=== PATIENT | male | born 1965 | race Caucasian/White ===

== ENCOUNTER → 2018-02-04 12:43 | Outpatient (CLI) | payer OTHER, SELFPAY ==
[2018-02-04 14:02] LABS: Absolute Neutrophil Count 4.9 X10^3/uL (2.0-7.7); Basophil# 0.05 X10^3/uL; Basophil% 0.6 % (0-1); Differential Indicated SCAN CRITERIA MET; Eosinophil# 0.08 X10^3/uL; Hematocrit 42.9 % (40-54); Hemoglobin 14.8 g/dl (13.0-16.5); Lymphocyte % 27.9 % (19-41); Mean Corp Hgb Conc 34.5 g/gl (32-36); Mean Corpuscular Hgb 33.3 pg (27.0-32.0); Mean Corpuscular Volume 96.6 fL (80-94); Mean Platelet Vol. 8.7 fl (6.2-12.0); Monocyte# 0.85 X10^3/uL; Monocyte% 10.3 % (0-10); Neutrophil # 4.92 X10^3/uL (2.7-7.7); Neutrophil % 59.7 % (47-70); POSITIVE COUNT NO; POSITIVE DIFFERENTIAL NO; POSITIVE MORPHOLOGY YES; Platelet Count 338 K/mm3 (150-450); RBC Distribution Width CV 12.7 % (11.6-14.6); RBC Distribution Width SD 44.5 fl (35.1-43.9); Red Blood Count 4.44 M/mm3 (4.6-6.2); White Blood Count 8.2 K/mm3 (4.4-11.0)
[2018-02-04 14:26] LABS: Atypical Lymphocyte RARE %
[2018-02-04 14:37] LABS: AST(SGOT) 25 U/L (15-37); Alanine Aminotransfer ALT/SGPT 19 U/L (16-61); Albumin, Serum 3.6 g/dL (3.2-5.0); Alkaline Phosphatase 57 U/L (45-117); Anion Gap 7 (5-15); BUN 7 mg/dL (7-18); BUN/Creat Ratio 9.7 RATIO (10-20); Calcium,Total 8.8 mg/dL (8.5-10.1); Chloride 97 mmol/L (98-107); Cholesterol 177 mg/dL (200); Creatinine, Serum 0.72 mg/dL (0.70-1.30); EST Glomerular Filtration Rate 120 mL/min (>60); Est Glom Filt Rate - Afr Amer 145 mL/min (>60); Globulin 3.7 g/dL (2.2-4.2); Glucose 101 mg/dL (74-106); High Density Lipoprotein 53 mg/dL; Potassium 4.5 mmol/L (3.5-5.1); Protein, Total 7.3 g/dL (6.4-8.2); Sodium Level 134 mmol/L (136-145); Triglycerides 69 mg/dL; Very Low Density Lipoprotein 14 mg/dL (5-40)
[2018-02-05 14:07] LABS: Absolute CD4 Helper 857 /uL (359-1519); Basophils (Absolute) 0 x10E3/uL (0.0-0.2); CD4/CD8 Ratio 0.81 (0.92-3.72); Eosinophils 1 % (Not Estab.); Eosinophils (Absolute) 0.1 x10E3/uL (0.0-0.4); Hematocrit 41.5 % (37.5-51.0); Hemoglobin 14.4 g/dL (13.0-17.7); Immature Granulocytes 1 % (Not Estab.); Immature Granulocytes Absolute 0 x10E3/uL (0.0-0.1); Lymphs 28 % (Not Estab.); Lymphs (Absolute) 2.4 x10E3/uL (0.7-3.1); MCH 33.1 pg (26.6-33.0); MCHC 34.7 g/dL (31.5-35.7); MCV 95 fL (79-97); Monocytes 11 % (Not Estab.); Monocytes (Absolute) 0.9 x10E3/uL (0.1-0.9); Neutrophils 58 % (Not Estab.); Neutrophils (Absolute) 5.2 x10E3/uL (1.4-7.0); Percent % CD4 Pos. Lymph. 35.7 % (30.8-58.5); Percent % CD8 Pos. Lymph. 44.1 % (12.0-35.5); Platelets 319 x10E3/uL (150-379); RBC Count 4.35 x10E6/uL (4.14-5.80); RDW 13.4 % (12.3-15.4); WBC Count 8.8 x10E3/uL (3.4-10.8)
[2018-02-06 13:41] LABS: HIV-1 RNA by PCR, Quant. < 20 copies/mL (.)
== END ==
PROVIDERS: Family Provider Family Medicine; PCP Family Medicine; Visit Provider Internal Medicine Infectious Disease
DX: B20 Human immunodeficiency virus [HIV] disease (principal); E78.5 Hyperlipidemia, unspecified
CPT/HCPCS: 36415; 80053; 80061; 85025; 86360; 87536

== ENCOUNTER → 2018-08-19 11:00 | Outpatient (CLI) | payer OTHER, SELFPAY ==
[2018-08-19 13:54] LABS: Absolute Lymphocyte Count 1.92 X10^3/ul (0.83-4.51); Basophil# 0.04 X10^3/uL; Basophil% 0.7 % (0-1); Eosinophil# 0.11 X10^3/uL; Eosinophils% 1.9 % (0-5); Hematocrit 38.8 % (40-54); Hemoglobin 13.2 g/dl (13.0-16.5); Lymphocyte # 1.92 X10^3/ul (4.0); Lymphocyte % 33.1 % (19-41); Mean Corpuscular Hgb 33.7 pg (27.0-32.0); Mean Platelet Vol. 9.1 fl (6.2-12.0); Monocyte# 0.72 X10^3/uL; Monocyte% 12.4 % (0-10); Neutrophil % 51.7 % (47-70); POSITIVE COUNT NO; POSITIVE DIFFERENTIAL NO; POSITIVE MORPHOLOGY NO; Platelet Count 262 K/mm3 (150-450); RBC Distribution Width CV 12.7 % (11.6-14.6); RBC Distribution Width SD 45.9 fl (35.1-43.9); Red Blood Count 3.92 M/mm3 (4.6-6.2); White Blood Count 5.8 K/mm3 (4.4-11.0)
[2018-08-19 14:08] LABS: ALB/GLOB Ratio 1.2 RATIO (0.9-2.4); AST(SGOT) 23 U/L (15-37); Alanine Aminotransfer ALT/SGPT 22 U/L (16-61); Albumin, Serum 3.8 g/dL (3.2-5.0); Alkaline Phosphatase 46 U/L (45-117); Anion Gap 5 (5-15); BUN 9 mg/dL (7-18); BUN/Creat Ratio 11.3 RATIO (10-20); Calcium,Total 8.4 mg/dL (8.5-10.1); Chloride 99 mmol/L (98-107); Cholesterol 166 mg/dL (200); EST Glomerular Filtration Rate 107 mL/min (>60); Est Glom Filt Rate - Afr Amer 130 mL/min (>60); Globulin 3.2 g/dL (2.2-4.2); Glucose 93 mg/dL (74-106); High Density Lipoprotein 60 mg/dL; Potassium 4.7 mmol/L (3.5-5.1); Sodium Level 132 mmol/L (136-145); Triglycerides 37 mg/dL; Very Low Density Lipoprotein 7 mg/dL (5-40)
[2018-08-22 13:39] LABS: HIV-1 RNA by PCR, Quant. < 20 copies/mL (.)
== END ==
PROVIDERS: Family Provider Family Medicine; PCP Family Medicine; Referring Provider Internal Medicine Infectious Disease; Visit Provider Internal Medicine Infectious Disease
DX: B20 Human immunodeficiency virus [HIV] disease (principal); E78.5 Hyperlipidemia, unspecified
CPT/HCPCS: 36415; 80053; 80061; 85025; 87536

== ENCOUNTER → 2018-08-20 15:18 | Outpatient (CLI) | payer OTHER, SELFPAY | PROVIDERS: Family Provider Family Medicine; PCP Family Medicine; Referring Provider Internal Medicine Infectious Disease; Visit Provider Internal Medicine Infectious Disease | DX: B20 Human immunodeficiency virus [HIV] disease (principal) ==

== ENCOUNTER → 2019-02-10 13:51 | Outpatient (CLI) | payer OTHER, SELFPAY ==
[2019-02-10 14:50] LABS: Absolute Lymphocyte Count 2.54 X10^3/ul (0.83-4.51); Absolute Neutrophil Count 2.9 X10^3/uL (2.0-7.7); Basophil# 0.02 X10^3/uL; Basophil% 0.3 % (0-1); Eosinophil# 0.12 X10^3/uL; Hematocrit 41.5 % (40-54); Hemoglobin 14.3 g/dl (13.0-16.5); Lymphocyte # 2.54 X10^3/ul (4.0); Lymphocyte % 42.3 % (19-41); Mean Corp Hgb Conc 34.5 g/gl (32-36); Mean Corpuscular Volume 95.8 fL (80-94); Mean Platelet Vol. 8.8 fl (6.2-12.0); Monocyte# 0.46 X10^3/uL; Monocyte% 7.7 % (0-10); Neutrophil # 2.85 X10^3/uL (2.7-7.7); Neutrophil % 47.5 % (47-70); Platelet Count 232 K/mm3 (150-450); RBC Distribution Width CV 12.9 % (11.6-14.6); RBC Distribution Width SD 45.4 fl (35.1-43.9); Red Blood Count 4.33 M/mm3 (4.6-6.2)
[2019-02-10 14:51] LABS: POSITIVE COUNT NO; POSITIVE DIFFERENTIAL NO; POSITIVE MORPHOLOGY NO
[2019-02-10 15:07] LABS: ALB/GLOB Ratio 1.1 RATIO (0.9-2.4); AST(SGOT) 22 U/L (15-37); Alanine Aminotransfer ALT/SGPT 19 U/L (16-61); Albumin, Serum 3.7 g/dL (3.2-5.0); Alkaline Phosphatase 55 U/L (45-117); Anion Gap 4 (5-15); BUN 5 mg/dL (7-18); BUN/Creat Ratio 7.2 RATIO (10-20); Calcium,Total 8.3 mg/dL (8.5-10.1); Chloride 98 mmol/L (98-107); Cholesterol 157 mg/dL (200); EST Glomerular Filtration Rate 125 mL/min (>60); Est Glom Filt Rate - Afr Amer 152 mL/min (>60); Globulin 3.5 g/dL (2.2-4.2); Glucose 76 mg/dL (74-106); High Density Lipoprotein 45 mg/dL; Potassium 4.5 mmol/L (3.5-5.1); Protein, Total 7.2 g/dL (6.4-8.2); Sodium Level 127 mmol/L (136-145); Triglycerides 106 mg/dL; Very Low Density Lipoprotein 21 mg/dL (5-40)
[2019-02-12 13:39] LABS: HIV-1 RNA by PCR, Quant. < 20 copies/mL (.)
== END ==
PROVIDERS: Family Provider Family Medicine; PCP Family Medicine; Referring Provider Internal Medicine Infectious Disease; Visit Provider Internal Medicine Infectious Disease
DX: B20 Human immunodeficiency virus [HIV] disease (principal); E78.5 Hyperlipidemia, unspecified
CPT/HCPCS: 36415; 80053; 80061; 85025; 87536

== ENCOUNTER → 2019-02-11 14:15 | Outpatient (CLI) | payer OTHER, SELFPAY | PROVIDERS: Family Provider Family Medicine; PCP Family Medicine; Referring Provider Internal Medicine Infectious Disease; Visit Provider Internal Medicine Infectious Disease | DX: B20 Human immunodeficiency virus [HIV] disease (principal) ==

== ENCOUNTER → 2019-08-19 16:28 | Outpatient (CLI) | payer OTHER, SELFPAY ==
[2019-08-19 17:14] LABS: Absolute Lymphocyte Count 2.45 X10^3/uL (0.83-4.51); Absolute Neutrophil Count 4.2 X10^3/uL (2.0-7.7); Basophil# 0.04 X10^3/uL; Basophil% 0.6 % (0-1); Eosinophil# 0.05 X10^3/uL; Eosinophils% 0.7 % (0-5); Hematocrit 39.6 % (40-54); Hemoglobin 13.3 g/dL (13.0-16.5); Lymphocyte # 2.45 X10^3/ul (4.0); Lymphocyte % 33.7 % (19-41); Mean Corp Hgb Conc 33.6 g/dL (32-36); Mean Corpuscular Hgb 32.5 pg (27.0-32.0); Mean Corpuscular Volume 96.8 fL (80-94); Mean Platelet Vol. 8.5 fl (6.2-12.0); Monocyte% 6.9 % (0-10); NRBC Flagged by Analyzer 0 % (0-5); Neutrophil # 4.21 X10^3/uL (2.7-7.7); Neutrophil % 57.8 % (47-70); Platelet Count 241 K/mm3 (150-450); RBC Distribution Width CV 13.2 % (11.6-14.6); RBC Distribution Width SD 47.4 fl (35.1-43.9); Red Blood Count 4.09 M/mm3 (4.6-6.2); White Blood Count 7.3 K/mm3 (4.4-11.0)
[2019-08-19 17:35] LABS: ALB/GLOB Ratio 1.3 RATIO (0.9-2.4); AST(SGOT) 21 U/L (15-37); Alanine Aminotransfer ALT/SGPT 20 U/L (16-61); Albumin, Serum 4.2 g/dL (3.2-5.0); Alkaline Phosphatase 50 U/L (45-117); Anion Gap 9 (5-15); BUN 9 mg/dL (7-18); BUN/Creat Ratio 11.3 RATIO (10-20); Calcium,Total 8.7 mg/dL (8.5-10.1); Chloride 100 mmol/L (98-107); Cholesterol 160 mg/dL (200); Creatinine, Serum 0.79 mg/dL (0.70-1.30); EST Glomerular Filtration Rate 107 mL/min (>60); Est Glom Filt Rate - Afr Amer 130 mL/min (>60); Globulin 3.2 g/dL (2.2-4.2); Glucose 83 mg/dL (74-106); High Density Lipoprotein 67 mg/dL; Potassium 4.4 mmol/L (3.5-5.1); Protein, Total 7.4 g/dL (6.4-8.2); Sodium Level 136 mmol/L (136-145); Triglycerides 47 mg/dL; Very Low Density Lipoprotein 9 mg/dL (5-40)
[2019-08-22 03:07] LABS: Absolute CD4 Helper 1033 /uL (359-1519); Basophils (Absolute) 0 x10E3/uL (0.0-0.2); Eosinophils 1 % (Not Estab.); Eosinophils (Absolute) 0.1 x10E3/uL (0.0-0.4); HCV Quant. RNA PCR HCV Not Detected IU/mL (.); Hemoglobin 13.6 g/dL (13.0-17.7); Immature Granulocytes 0 % (Not Estab.); Immature Granulocytes Absolute 0 x10E3/uL (0.0-0.1); Lymphs 36 % (Not Estab.); Lymphs (Absolute) 2.5 x10E3/uL (0.7-3.1); MCV 97 fL (79-97); Monocytes 7 % (Not Estab.); Monocytes (Absolute) 0.5 x10E3/uL (0.1-0.9); Neutrophils 56 % (Not Estab.); Percent % CD4 Pos. Lymph. 41.3 % (30.8-58.5); Platelets 277 x10E3/uL (150-450); RBC Count 4.12 x10E6/uL (4.14-5.80); RDW 14.6 % (12.3-15.4); WBC Count 7.1 x10E3/uL (3.4-10.8)
== END ==
PROVIDERS: Family Provider Family Medicine; PCP Family Medicine; Referring Provider Internal Medicine Infectious Disease; Visit Provider Internal Medicine Infectious Disease
DX: B20 Human immunodeficiency virus [HIV] disease (principal); E78.5 Hyperlipidemia, unspecified
CPT/HCPCS: 36415; 80053; 80061; 85025; 86361; 87522

== ENCOUNTER → 2020-01-26 14:56 | Outpatient (CLI) | payer OTHER, SELFPAY ==
[2020-01-26 16:10] LABS: Absolute Neutrophil Count 4.4 X10^3/uL (2.0-7.7); Basophil# 0.04 X10^3/uL; Basophil% 0.5 % (0-1); Eosinophil# 0.05 X10^3/uL; Eosinophils% 0.7 % (0-5); Hematocrit 41.8 % (40-54); Hemoglobin 14.3 g/dL (13.0-16.5); Lymphocyte % 32.2 % (19-41); Mean Corp Hgb Conc 34.2 g/dL (32-36); Mean Corpuscular Hgb 33.3 pg (27.0-32.0); Mean Corpuscular Volume 97.2 fL (80-94); Mean Platelet Vol. 8.4 fl (6.2-12.0); Monocyte# 0.56 X10^3/uL; Monocyte% 7.5 % (0-10); NRBC Flagged by Analyzer 0 % (0-5); Neutrophil # 4.39 X10^3/uL (2.7-7.7); Neutrophil % 58.8 % (47-70); Platelet Count 273 K/mm3 (150-450); RBC Distribution Width CV 12.6 % (11.6-14.6); RBC Distribution Width SD 44.9 fl (35.1-43.9); White Blood Count 7.5 K/mm3 (4.4-11.0)
[2020-01-26 18:59] LABS: ALB/GLOB Ratio 1.1 RATIO (0.9-2.4); AST(SGOT) 22 U/L (15-37); Alanine Aminotransfer ALT/SGPT 23 U/L (16-61); Albumin, Serum 3.9 g/dL (3.2-5.0); Alkaline Phosphatase 52 U/L (45-117); Anion Gap 5 (5-15); BUN 8 mg/dL (7-18); BUN/Creat Ratio 10.1 RATIO (10-20); Calcium,Total 8.9 mg/dL (8.5-10.1); Chloride 96 mmol/L (98-107); Cholesterol 184 mg/dL (200); Creatinine, Serum 0.79 mg/dL (0.70-1.30); EST Glomerular Filtration Rate 107 mL/min (>60); Est Glom Filt Rate - Afr Amer 130 mL/min (>60); Globulin 3.7 g/dL (2.2-4.2); Glucose 82 mg/dL (74-106); High Density Lipoprotein 58 mg/dL; Potassium 4.7 mmol/L (3.5-5.1); Protein, Total 7.6 g/dL (6.4-8.2); Sodium Level 130 mmol/L (136-145); Triglycerides 93 mg/dL; Very Low Density Lipoprotein 19 mg/dL (5-40)
[2020-01-28 14:08] LABS: Absolute CD4 Helper 979 /uL (359-1519); Basophils (Absolute) 0 x10E3/uL (0.0-0.2); Eosinophils 1 % (Not Estab.); Eosinophils (Absolute) 0.1 x10E3/uL (0.0-0.4); Hematocrit 43.4 % (37.5-51.0); Hemoglobin 14.3 g/dL (13.0-17.7); Immature Granulocytes 0 % (Not Estab.); Lymphs 33 % (Not Estab.); Lymphs (Absolute) 2.4 x10E3/uL (0.7-3.1); MCH 32.6 pg (26.6-33.0); MCHC 32.9 g/dL (31.5-35.7); MCV 99 fL (79-97); Monocytes 8 % (Not Estab.); Monocytes (Absolute) 0.6 x10E3/uL (0.1-0.9); Neutrophils 57 % (Not Estab.); Neutrophils (Absolute) 4.1 x10E3/uL (1.4-7.0); Percent % CD4 Pos. Lymph. 40.8 % (30.8-58.5); Platelets 310 x10E3/uL (150-450); RBC Count 4.38 x10E6/uL (4.14-5.80); RDW 12.5 % (11.6-15.4); WBC Count 7.2 x10E3/uL (3.4-10.8)
[2020-01-28 16:39] LABS: Immature Granulocytes Absolute 0 x10E3/uL (0.0-0.1)
[2020-02-13 08:47] LABS: HIV-1 RNA by PCR, Quant. < 20 copies/mL (.)
== END ==
PROVIDERS: PCP Family Medicine
DX: B20 Human immunodeficiency virus [HIV] disease (principal); E78.5 Hyperlipidemia, unspecified
CPT/HCPCS: 36415; 80053; 80061; 85025; 86361; 87536

== ENCOUNTER → 2020-12-06 14:24 | Outpatient (CLI) | payer OTHER, SELFPAY ==
[2020-12-06 17:53] LABS: Absolute Lymphocyte Count 1.88 X10^3/uL (0.83-4.51); Absolute Neutrophil Count 3.4 X10^3/uL (2.0-7.7); Basophil# 0.03 X10^3/uL; Basophil% 0.5 % (0-1); Eosinophil# 0.08 X10^3/uL; Eosinophils% 1.3 % (0-5); Hematocrit 42.8 % (40-54); Hemoglobin 14.4 g/dL (13.0-16.5); Lymphocyte # 1.88 X10^3/ul (4.0); Lymphocyte % 31.1 % (19-41); Mean Corp Hgb Conc 33.6 g/dL (32-36); Mean Corpuscular Volume 97.9 fL (80-94); Mean Platelet Vol. 8.8 fl (6.2-12.0); Monocyte# 0.62 X10^3/uL; Monocyte% 10.2 % (0-10); NRBC Flagged by Analyzer 0 % (0-5); Neutrophil # 3.42 X10^3/uL (2.7-7.7); Neutrophil % 56.6 % (47-70); Platelet Count 258 K/mm3 (150-450); RBC Distribution Width CV 12.5 % (11.6-14.6); RBC Distribution Width SD 45.3 fl (35.1-43.9); Red Blood Count 4.37 M/mm3 (4.6-6.2); White Blood Count 6.1 K/mm3 (4.4-11.0)
[2020-12-06 18:07] LABS: ALB/GLOB Ratio 1.2 RATIO (0.9-2.4); AST(SGOT) 26 U/L (15-37); Alanine Aminotransfer ALT/SGPT 26 U/L (16-61); Albumin, Serum 4.2 g/dL (3.2-5.0); Alkaline Phosphatase 62 U/L (45-117); Anion Gap 6 (5-15); BUN 5 mg/dL (7-18); BUN/Creat Ratio 6.8 RATIO (10-20); Chloride 94 mmol/L (98-107); Cholesterol 188 mg/dL (200); Creatinine, Serum 0.73 mg/dL (0.70-1.30); EST Glomerular Filtration Rate 117 mL/min (>60); Est Glom Filt Rate - Afr Amer 142 mL/min (>60); Globulin 3.5 g/dL (2.2-4.2); Glucose 84 mg/dL (74-106); High Density Lipoprotein 80 mg/dL; Potassium 4.2 mmol/L (3.5-5.1); Protein, Total 7.7 g/dL (6.4-8.2); Sodium Level 127 mmol/L (136-145); Triglycerides 52 mg/dL; Very Low Density Lipoprotein 10 mg/dL (5-40)
[2020-12-09 11:27] LABS: HIV-1 RNA by PCR, Quant. < 20 copies/mL (.)
== END ==
PROVIDERS: PCP Family Medicine; Referring Provider Internal Medicine Infectious Disease; Visit Provider Internal Medicine Infectious Disease
DX: B20 Human immunodeficiency virus [HIV] disease (principal); E78.5 Hyperlipidemia, unspecified
CPT/HCPCS: 36415; 80053; 80061; 85025; 87536

== ENCOUNTER → 2021-06-05 14:35 | Outpatient (CLI) | payer OTHER, SELFPAY ==
[2021-06-05 17:56] LABS: Absolute Lymphocyte Count 1.69 X10^3/uL (0.83-4.51); Basophil# 0.04 X10^3/uL; Basophil% 0.6 % (0-1); Eosinophil# 0.04 X10^3/uL; Eosinophils% 0.6 % (0-5); Hematocrit 38.9 % (40-54); Hemoglobin 13.4 g/dL (13.0-16.5); Lymphocyte # 1.69 X10^3/ul (0.83-4.51); Mean Corp Hgb Conc 34.4 g/dL (32-36); Mean Corpuscular Hgb 33.3 pg (27.0-32.0); Mean Corpuscular Volume 96.8 fL (80-94); Mean Platelet Vol. 8.9 fl (6.2-12.0); Monocyte# 0.72 X10^3/uL; Monocyte% 11.1 % (0-10); NRBC Flagged by Analyzer 0 % (0-5); Neutrophil # 3.99 X10^3/uL (2.7-7.7); Neutrophil % 61.2 % (47-70); Platelet Count 245 K/mm3 (150-450); RBC Distribution Width CV 12.8 % (11.6-14.6); RBC Distribution Width SD 45.9 fl (35.1-43.9); Red Blood Count 4.02 M/mm3 (4.6-6.2); White Blood Count 6.5 K/mm3 (4.4-11.0)
[2021-06-05 18:06] LABS: ALB/GLOB Ratio 1.1 RATIO (0.9-2.4); AST(SGOT) 29 U/L (15-37); Alanine Aminotransfer ALT/SGPT 23 U/L (16-61); Albumin, Serum 3.8 g/dL (3.2-5.0); Alkaline Phosphatase 50 U/L (45-117); Anion Gap 5 (5-15); BUN 6 mg/dL (7-18); BUN/Creat Ratio 9.6 RATIO (10-20); Calcium,Total 8.7 mg/dL (8.5-10.1); Chloride 99 mmol/L (98-107); Cholesterol 161 mg/dL (200); Creatinine, Serum 0.62 mg/dL (0.70-1.30); EST Glomerular Filtration Rate 141 mL/min (>60); Est Glom Filt Rate - Afr Amer 170 mL/min (>60); Globulin 3.4 g/dL (2.2-4.2); Glucose 82 mg/dL (74-106); High Density Lipoprotein 71 mg/dL; Potassium 4.2 mmol/L (3.5-5.1); Protein, Total 7.2 g/dL (6.4-8.2); Sodium Level 130 mmol/L (136-145); Triglycerides 43 mg/dL; Very Low Density Lipoprotein 9 mg/dL (5-40)
[2021-06-07 14:09] LABS: Absolute CD4 Helper 689 /uL (359-1519); Basophils (Absolute) 0.1 x10E3/uL (0.0-0.2); Eosinophils 1 % (Not Estab.); Eosinophils (Absolute) 0.1 x10E3/uL (0.0-0.4); Hematocrit 39.4 % (37.5-51.0); Hemoglobin 13.3 g/dL (13.0-17.7); Immature Granulocytes 0 % (Not Estab.); Lymphs 28 % (Not Estab.); Lymphs (Absolute) 1.8 x10E3/uL (0.7-3.1); MCH 33.2 pg (26.6-33.0); MCHC 33.8 g/dL (31.5-35.7); MCV 98 fL (79-97); Monocytes 10 % (Not Estab.); Monocytes (Absolute) 0.7 x10E3/uL (0.1-0.9); Neutrophils 60 % (Not Estab.); Percent % CD4 Pos. Lymph. 38.3 % (30.8-58.5); Platelets 238 x10E3/uL (150-450); RBC Count 4.01 x10E6/uL (4.14-5.80); RDW 12.7 % (11.6-15.4); WBC Count 6.6 x10E3/uL (3.4-10.8)
[2021-06-07 14:45] LABS: Immature Granulocytes Absolute 0 x10E3/uL (0.0-0.1)
[2021-06-07 16:20] LABS: HIV-1 RNA by PCR, Quant. < 20 copies/mL (.)
== END ==
PROVIDERS: PCP Family Medicine; Referring Provider Internal Medicine Infectious Disease; Visit Provider Internal Medicine Infectious Disease
DX: B20 Human immunodeficiency virus [HIV] disease (principal)
CPT/HCPCS: 36415; 80053; 80061; 85025; 86361; 87536

== ENCOUNTER → 2021-07-22 08:30 | Outpatient (CLI) | payer OTHER, SELFPAY | PROVIDERS: PCP Family Medicine; Referring Provider Physician Assistant Surgical; Visit Provider Physician Assistant Surgical | DX: Z11.52 Encounter for screening for COVID-19 (principal) | CPT/HCPCS: 87635; U0005; U0003 ==

== ENCOUNTER 2021-12-05 14:20 | Outpatient (CLI) | payer OTHER, SELFPAY ==
[2021-12-05 15:35] LABS: Absolute Lymphocyte Count 2.21 X10^3/uL (0.83-4.51); Absolute Neutrophil Count 3.4 X10^3/uL (2.0-7.7); Basophil# 0.05 X10^3/uL; Basophil% 0.8 % (0-1); Eosinophil# 0.08 X10^3/uL; Eosinophils% 1.2 % (0-5); Hematocrit 42.6 % (40-54); Hemoglobin 14.8 g/dL (13.0-16.5); Lymphocyte # 2.21 X10^3/ul (0.83-4.51); Lymphocyte % 33.9 % (19-41); Mean Corp Hgb Conc 34.7 g/dL (32-36); Mean Corpuscular Hgb 33.8 pg (27.0-32.0); Mean Corpuscular Volume 97.3 fL (80-94); Mean Platelet Vol. 8.4 fl (6.2-12.0); Monocyte# 0.78 X10^3/uL; NRBC Flagged by Analyzer 0 % (0-5); Neutrophil # 3.37 X10^3/uL (2.7-7.7); Neutrophil % 51.8 % (47-70); Platelet Count 259 K/mm3 (150-450); RBC Distribution Width CV 12.9 % (11.6-14.6); RBC Distribution Width SD 46.5 fl (35.1-43.9); Red Blood Count 4.38 M/mm3 (4.6-6.2); White Blood Count 6.5 K/mm3 (4.4-11.0)
[2021-12-05 16:22] LABS: AST(SGOT) 28 U/L (15-37); Alanine Aminotransfer ALT/SGPT 22 U/L (16-61); Albumin, Serum 3.9 g/dL (3.2-5.0); Alkaline Phosphatase 61 U/L (45-117); Anion Gap 5 (5-15); BUN 8 mg/dL (7-18); BUN/Creat Ratio 11.3 RATIO (10-20); Calcium,Total 8.8 mg/dL (8.5-10.1); Chloride 97 mmol/L (98-107); Creatinine, Serum 0.71 mg/dL (0.70-1.30); EST Glomerular Filtration Rate 122 mL/min (>60); Est Glom Filt Rate - Afr Amer 147 mL/min (>60); Globulin 3.8 g/dL (2.2-4.2); Glucose 95 mg/dL (74-106); Potassium 4.4 mmol/L (3.5-5.1); Protein, Total 7.7 g/dL (6.4-8.2); Sodium Level 129 mmol/L (136-145)
[2021-12-08 18:02] LABS: HIV-1 RNA by PCR, Quant. < 20 copies/mL (.)
== END 2021-12-05 23:59 | disposition short-term general hospital (02) ==
PROVIDERS: PCP Family Medicine; Visit Provider Internal Medicine Infectious Disease
DX: B20 Human immunodeficiency virus [HIV] disease (principal)
CPT/HCPCS: 36415; 80053; 85025; 87536

== ENCOUNTER 2022-01-17 14:19 | Outpatient (CLI) | payer OTHER, SELFPAY ==
--- NOTE | 2022-01-17 14:26 | CT_ITS ---
STUDY: LOW DOSE CT LUNG CANCER SCREENING REASON FOR EXAM: Male, 56 years old. Smoking history at 1.5 packs per day x40 years RADIATION DOSAGE (If Supplied By Facility): CTDIvol = ( 1.59 ) mGy, DLP = ( 61.56 ) mGycm TECHNIQUE: No contrast was administered. Low dose technique was utilized (average mAS-38 and kVp 120). 1.25 mm axial source images with a slice interval of 1.25-mm were reconstructed in lung windows. 2.5 mm axial source images with a slice interval of 2.5-mm were reconstructed in lung windows. 5.0 mm axial source images with a slice interval of 5.0-mm were reconstructed in soft tissue windows. Nodule measured using lung windows on PACS and/or independent workstation with automated measurement of minimum and maximum diameter. Nodule measurement reported as average diameter rounded to the nearest whole number. Growth is defined as an increase ins size of greater than 1.5 mm. COMPARISON: Previous plain films FINDINGS: Lung windows show underlying emphysema with bleb formation in the apices. There is no organized infiltrate, or suspicious groundglass opacifications. No suspicious noncalcified mass or nodule. Soft tissue windows show normal-appearing thyroid gland. No suspicious adenopathy. Calcified coronary vessels are noted. Bony structures show degenerative change. CT/Low Dose CT Lung Screening IMPRESSION: Lung-RADS category 2 - Continue annual screening with LDCT in 12 months. IMPORTANT NOTES FOR USE: ACR Lung-RADS Version 1.1 Assessment Categories Release Date: 2018 Category: Coded 0-4 bases on nodule(s) with highest degree of suspicion. Negative screen is defined as categories 1 and 2; a positive screen is defined as categories 3 and 4. Category 3 and 4A nodules that are unchanged on interval CT should be coded as category 2, and individuals returned to screening in 12 months. Category 4X: Category 3 or 4 nodules with additional imaging findings that increase the suspicion of lung cancer, such as spiculation, GGN that doubles in size in 1 year, enlarged lymph notes, etc. Category Modifiers: S (significant finding unrelated to lung cancer) Electronically Signed: Yefri Brooks MD at 16:52 EST ,
== END 2022-01-17 23:59 | disposition home or self-care (01) ==
LOC: CT 14:25
PROVIDERS: PCP Family Medicine; Referring Provider Internal Medicine Infectious Disease; Visit Provider Internal Medicine Infectious Disease
DX: F17.200 Nicotine dependence, unspecified, uncomplicated (principal)
CPT/HCPCS: 71271

== ENCOUNTER → 2022-06-19 | Outpatient (CLI) | payer OTHER, SELFPAY ==
[2022-06-19 13:28] LABS: Absolute Lymphocyte Count 2.11 X10^3/uL (0.83-4.51); Absolute Neutrophil Count 4.1 X10^3/uL (2.0-7.7); Basophil# 0.06 X10^3/uL; Basophil% 0.8 % (0-1); Eosinophils% 1.4 % (0-5); Hematocrit 41.9 % (40-54); Lymphocyte # 2.11 X10^3/ul (0.83-4.51); Lymphocyte % 29.8 % (19-41); Mean Corp Hgb Conc 35.8 g/dL (32-36); Mean Corpuscular Hgb 34.4 pg (27.0-32.0); Mean Corpuscular Volume 96.1 fL (80-94); Mean Platelet Vol. 8.4 fl (6.2-12.0); Monocyte% 9.9 % (0-10); NRBC Flagged by Analyzer 0 % (0-5); Neutrophil # 4.08 X10^3/uL (2.7-7.7); Neutrophil % 57.8 % (47-70); Platelet Count 247 K/mm3 (150-450); RBC Distribution Width CV 12.9 % (11.6-14.6); RBC Distribution Width SD 46.2 fl (35.1-43.9); Red Blood Count 4.36 M/mm3 (4.6-6.2); White Blood Count 7.1 K/mm3 (4.4-11.0)
[2022-06-19 13:53] LABS: AST(SGOT) 23 U/L (15-37); Alanine Aminotransfer ALT/SGPT 21 U/L (16-61); Albumin, Serum 3.7 g/dL (3.2-5.0); Alkaline Phosphatase 60 U/L (45-117); Anion Gap 5 (5-15); BUN 8 mg/dL (7-18); Calcium,Total 8.8 mg/dL (8.5-10.1); Chloride 98 mmol/L (98-107); Creatinine, Serum 0.73 mg/dL (0.70-1.30); EST Glomerular Filtration Rate 118 mL/min (>60); Est Glom Filt Rate - Afr Amer 143 mL/min (>60); Globulin 3.7 g/dL (2.2-4.2); Glucose 94 mg/dL (74-106); Potassium 4.1 mmol/L (3.5-5.1); Protein, Total 7.4 g/dL (6.4-8.2); Sodium Level 132 mmol/L (136-145)
[2022-06-22 20:24] LABS: HIV-1 RNA by PCR, Quant. < 20 copies/mL (.)
== END | disposition home or self-care (01) ==
LOC: LABSPEC 13:01 → LAB 13:06
PROVIDERS: PCP Family Medicine; Visit Provider Internal Medicine Infectious Disease
DX: B20 Human immunodeficiency virus [HIV] disease (principal)
CPT/HCPCS: 80053; 85025; 87536

== ENCOUNTER → 2022-12-04 | Outpatient (CLI) | payer OTHER, SELFPAY ==
[2022-12-04 15:29] LABS: Absolute Lymphocyte Count 2.12 X10^3/uL (0.83-4.51); Absolute Neutrophil Count 3.7 X10^3/uL (2.0-7.7); Basophil# 0.04 X10^3/uL; Basophil% 0.6 % (0-1); Eosinophil# 0.12 X10^3/uL; Eosinophils% 1.8 % (0-5); Hematocrit 49.3 % (40-54); Hemoglobin 16.5 g/dL (13.0-16.5); Lymphocyte # 2.12 X10^3/ul (0.83-4.51); Lymphocyte % 32.5 % (19-41); Mean Corp Hgb Conc 33.5 g/dL (32-36); Mean Corpuscular Hgb 32.7 pg (27.0-32.0); Mean Corpuscular Volume 97.8 fL (80-94); Mean Platelet Vol. 8.7 fl (6.2-12.0); Monocyte# 0.56 X10^3/uL; Monocyte% 8.6 % (0-10); NRBC Flagged by Analyzer 0 % (0-5); Neutrophil # 3.66 X10^3/uL (2.7-7.7); Platelet Count 256 K/mm3 (150-450); RBC Distribution Width CV 12.5 % (11.6-14.6); RBC Distribution Width SD 44.9 fl (35.1-43.9); Red Blood Count 5.04 M/mm3 (4.6-6.2); White Blood Count 6.5 K/mm3 (4.4-11.0)
[2022-12-04 15:45] LABS: AST(SGOT) 22 U/L (15-37); Alanine Aminotransfer ALT/SGPT 19 U/L (16-61); Albumin, Serum 3.9 g/dL (3.2-5.0); Alkaline Phosphatase 62 U/L (45-117); Anion Gap 5 (5-15); BUN 10 mg/dL (7-18); BUN/Creat Ratio 14.5 RATIO (10-20); Calcium,Total 9.1 mg/dL (8.5-10.1); Chloride 101 mmol/L (98-107); Cholesterol 188 mg/dL (200); Creatinine, Serum 0.69 mg/dL (0.70-1.30); EST Glomerular Filtration Rate 125 mL/min (>60); Est Glom Filt Rate - Afr Amer 151 mL/min (>60); Glucose 89 mg/dL (74-106); High Density Lipoprotein 72 mg/dL; Potassium 4.1 mmol/L (3.5-5.1); Protein, Total 7.9 g/dL (6.4-8.2); Sodium Level 135 mmol/L (136-145); Triglycerides 58 mg/dL; Very Low Density Lipoprotein 12 mg/dL (5-40)
[2022-12-08 14:15] LABS: HIV-1 RNA by PCR, Quant. < 20 copies/mL (.)
== END | disposition home or self-care (01) ==
LOC: MTLAB 13:49
PROVIDERS: PCP Family Medicine; Referring Provider Internal Medicine Infectious Disease; Visit Provider Internal Medicine Infectious Disease
DX: B20 Human immunodeficiency virus [HIV] disease (principal)
CPT/HCPCS: 36415; 80053; 80061; 85025; 87536

== ENCOUNTER → 2022-12-06 | Outpatient (CLI) | payer OTHER, SELFPAY | END | disposition home or self-care (01) | PROVIDERS: PCP Family Medicine; Referring Provider Internal Medicine Infectious Disease; Visit Provider Internal Medicine Infectious Disease | DX: B20 Human immunodeficiency virus [HIV] disease (principal); E78.5 Hyperlipidemia, unspecified ==

== ENCOUNTER 2022-12-19 12:50 | Emergency (ER) | payer OTHER, SELFPAY ==
[2022-12-19] VITALS (11 sets, daily range): BP systolic 145–169; BP diastolic 80–100; PULSE 72–84; RESP 14–18; TEMP 36.9–37; O2SAT 94–99; BMI 19.8
--- NOTE | 2022-12-19 12:55 | CT_ITS ---
STUDY: CTA HEAD AND NECK WITH CONTRAST REASON FOR EXAM: Male, 57 years old. Neuro deficit, acute, stroke suspected RADIATION DOSAGE (If Supplied By Facility): CTDIvol = ( 19.94 ) mGy, DLP = ( 802.25 ) mGycm TECHNIQUE: CT angiography was performed with a multi-detector CT scanner. Data acquisition was obtained from the skull base through the vertex following intravenous administration of IV 100mL Isovue-370. MIP images were reconstructed from the axial data set. Post-processing of the angiographic images was performed, with multiplanar reformation and 3D reconstruction. Individualized dose optimization techniques were used for this CT. COMPARISON: No relevant priors. FINDINGS: Normal bilateral petrous carotid arteries. There is calcified plaque formation of the right cavernous carotid artery, without a cross-sectional luminal stenosis. There is calcified plaque formation of the left cavernous carotid artery, without a cross-sectional luminal stenosis. Normal right A1 segments of the anterior cerebral artery. Normal left A1 segments of the anterior cerebral artery. Normal intact anterior communicating artery (ACOM). Normal bilateral A2 segments of the anterior cerebral arteries. Normal right M1 and M2 segments of the middle cerebral arteries, with a normal M1 bifurcation. Normal left M1 and M2 segments of the middle cerebral arteries, with a normal M1 bifurcation. Normal right posterior communicating artery (PCOM). Normal left posterior communicating artery (PCOM). Normal bilateral vertebral arteries. Normal basilar artery with a normal basilar bifurcation. The visualized bilateral superior cerebellar (SCA) arteries are normal. Normal bilateral P1, P2 and visualized P3 segments of the posterior cerebral arteries. There is no demonstrated aneurysm of the [place]. There is no demonstrated abnormality of the visualized brain. AORTIC ARCH: There is atherosclerotic calcific plaque formation of the aortic arch and great vessels arising from the aortic arch, without a hemodynamically significant stenosis. There is a bovine origin of the great vessels with a common origin of the brachiocephalic and left common carotid artery. Normal origin of the left subclavian artery. Minimal plaque formation at the origin of the left common carotid artery. RIGHT CAROTID ARTERIES: Normal right common carotid artery (CCA). Normal right common carotid bulb. Normal origin of the right internal carotid (ICA) artery without a hemodynamically significant stenosis. Normal visualized cervical portion of the right internal carotid artery. Normal origin of the right external carotid artery (ECA). LEFT CAROTID ARTERIES: Normal left common carotid artery (CCA). Normal left common carotid bulb. Normal origin of the left internal carotid (ICA) artery without a hemodynamically significant stenosis. Normal visualized cervical portion of the left internal carotid artery. Normal origin of the left external carotid artery (ECA). VERTEBRAL ARTERIES: The right vertebral artery is occluded at its origin. 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 N.B. : The above Results were Read Back by Lion Lin MD to Arnold Rosas and understanding confirmed on 12/19/2022 13:32:54 (ET). Electronically Signed: Lion Lin MD at 13:34 EST ,
--- NOTE | 2022-12-19 12:55 | CT_ITS ---
STUDY: CT HEAD STROKE PROTOCOL W/O CONTRAST INJECTION REASON FOR EXAM: Male, 57 years old. Neuro deficit, acute, stroke suspected RADIATION DOSAGE (If Supplied By Facility): CTDIvol = ( 44.99 ) mGy, DLP = ( 829.85 ) mGycm TECHNIQUE: Transaxial CT imaging of the brain was performed without administration of intravenous contrast material. Individualized dose optimization techniques were used for this CT. COMPARISON: No relevant priors. FINDINGS: Normal soft tissue structures. Normal calvarium. Normal size ventricles and extra-axial spaces for the patient''s age. There are areas of decreased attenuation within the white matter tracts of the supratentorial brain, consistent with microvascular disease changes. Findings suggestive of a decreased attenuation in the right basal ganglion. Normal brainstem. Normal cerebellum. There is no intracranial hemorrhage. There are no findings of an acute ischemic infarction. Normal visualized paranasal sinuses. ASPECT score: 8 CT/STROKE Brain/Head without Cont IMPRESSION: Mild degree of periventricular decreased attenuation suggestive of microvascular disease. Findings suggestive of ischemic change in the right basal ganglia. N.B. : The above Results were Read Back by Lion Lin MD to Arnold Rosas and understanding confirmed on 12/19/2022 13:10:46 (ET). Electronically Signed: Lion Lin MD at 13:11 EST ,
--- NOTE | 2022-12-19 12:55 | EKG12_ITS ---
Test Reason : STROKE ALERT Blood Pressure : / mmHG Vent. Rate : 077 BPM Atrial Rate : 077 BPM P-R Int : 198 ms QRS Dur : 092 ms QT Int : 376 ms P-R-T Axes : 086 091 073 degrees QTc Int : 425 ms Normal sinus rhythm Possible Left atrial enlargement Rightward axis Borderline ECG Confirmed by LIDYA SHERWOOD, SHERIN ([id number]), content editor SHEREE LIRA ([id number]) on 12/21/2022 10:05:27 AM Referred By: Confirmed By:SHERIN BOSE MD
[2022-12-19 13:06] LABS: Absolute Lymphocyte Count 2.35 X10^3/uL (0.83-4.51); Absolute Neutrophil Count 4.9 X10^3/uL (2.0-7.7); Basophil# 0.04 X10^3/uL; Basophil% 0.5 % (0-1); Eosinophil# 0.11 X10^3/uL; Eosinophils% 1.4 % (0-5); Hematocrit 44.7 % (40-54); Hemoglobin 15.8 g/dL (13.0-16.5); Lymphocyte # 2.35 X10^3/ul (0.83-4.51); Lymphocyte % 29.2 % (19-41); Mean Corp Hgb Conc 35.3 g/dL (32-36); Mean Corpuscular Hgb 33.5 pg (27.0-32.0); Mean Corpuscular Volume 94.7 fL (80-94); Mean Platelet Vol. 8.8 fl (6.2-12.0); Monocyte% 7.4 % (0-10); NRBC Flagged by Analyzer 0 % (0-5); Neutrophil # 4.93 X10^3/uL (2.7-7.7); Neutrophil % 61.1 % (47-70); Platelet Count 261 K/mm3 (150-450); RBC Distribution Width SD 42.3 fl (35.1-43.9); Red Blood Count 4.72 M/mm3 (4.6-6.2); White Blood Count 8.1 K/mm3 (4.4-11.0)
--- NOTE | 2022-12-19 13:09 | CASEMGMT ---
SW Note SW responded to stroke alert. Present with patient with female identifying herself as a relative. SW provided support to patient's support person. No needs identified. SW remains available if needs arise. Rihcelle TODD
[2022-12-19 13:14] LABS: Prothrombin Time (Protime)PT. 12.7 SECONDS (11.7-14.9)
[2022-12-19 13:26] LABS: Anion Gap 5 (5-15); BUN 9 mg/dL (7-18); BUN/Creat Ratio 11.6 RATIO (10-20); Calcium,Total 9.3 mg/dL (8.5-10.1); Chloride 97 mmol/L (98-107); Creatinine, Serum 0.78 mg/dL (0.70-1.30); EST Glomerular Filtration Rate 109 mL/min (>60); Est Glom Filt Rate - Afr Amer 132 mL/min (>60); Estimated Creatinine Clearance 92.88 ml/min; Glucose 117 mg/dL (74-106); Sodium Level 131 mmol/L (136-145); Troponin-I HS 5 pg/mL (3.0-78.0)
--- NOTE | 2022-12-19 13:27 | NURSING ---
1241 stroke alert called, eta is 5 min
--- NOTE | 2022-12-19 13:39 | NURSING ---
NO OLD EKGS
--- NOTE | 2022-12-19 13:43 | NURSING ---
PATIENT GOING TO [facility]
--- NOTE | 2022-12-19 13:45 | RAD_ITS ---
STUDY: X-RAY CHEST REASON FOR EXAM: Male, 57 years old. Neuro deficit, acute, stroke suspected TECHNIQUE: Single AP portable view of the chest. COMPARISON: None. FINDINGS: EKG electrodes are seen. There is hyperinflation of the lungs consistent with chronic obstructive lung disease (COPD). There is no demonstrated pleural abnormality. Normal size heart. Normal mediastinum and mei. Normal visualized pulmonary arteries. Normal visualized aortic arch and descending thoracic aorta. Normal visualized thoracic spine. Normal visualized ribs, clavicles, and shoulders. There is no demonstrated abnormality of the visualized soft tissue structures of the upper abdomen. RAD/Chest 1 View IMPRESSION: Hyperinflation. Electronically Signed: Lion Lin MD at 14:03 EST ,
--- NOTE | 2022-12-19 13:47 | NURSING ---
CALLED [facility], ETA IS 1 HR
--- NOTE | 2022-12-19 14:08 | EDS_ITS ---
HPI History of Present Illness Chief Complaint: Stroke Alert Informant: patient Onset/Context/Timing Onset: Today Context: Sudden Onset Timing: Continuous Quality and Location: Positive for Left Facial Droop, Left Arm Weakness and Left Leg Weakness Onset: This a.m. when he woke up. Worsened by: Nothing Relieved by: Nothing Associated Symptoms Associated Symptoms: Positive for Headache; Negative for Nausea, Vomiting or Chest Pain Narrative Narrative: Patient presents with left-sided weakness and left facial weakness that began today. Patient states he woke up like this this morning. Patient states he fell asleep last night while watching TV. Patient states he fell asleep around 2:30 AM. Patient states he was having some difficulty swallowing today. Patient also noted some slurring of his speech today. Patient states he was having difficulty moving the left side of his face as well as his left upper and lower extremities. Patient admits to a frontal headache. Patient denies any nausea or vomiting. Patient admits to some blurry vision over the right lateral visual field. Patient denies any loss of vision. [facility] Medical History TIA (transient ischemic attack) Home Medications amlodipine 10 mg tablet 10 mg PO DAILY 12/19/22 [History Last Taken Unknown] ascorbic acid (vitamin C) 500 mg chewable tablet (Vitamin C) 500 mg PO DAILY 12/19/22 [History Last Taken Unknown] elviteg 150 mg-cob 150 mg-emtricit 200 mg-tenofo alafenam 10 mg tablet (Genvoya) 1 tab PO DAILY 12/19/22 [History Last Taken Unknown] lisinopril 40 mg tablet 40 mg PO BID 12/19/22 [History Last Taken Unknown] metoprolol tartrate 50 mg tablet 50 mg PO BID 12/19/22 [History Last Taken Unknown] Allergy/AdvReac Type Severity Reaction Status Date / Time No Known Allergies Allergy Verified 12/19/22 13:15 Social History Smoking Status: Current every day smoker tobacco type: cigarettes ROS ROS ED Constitutional Constitutional ED: Denies chills or fever(s) Eyes Eyes: Reports blurry vision; Denies change in vision ENT ENT ED: Denies rhinorrhea or sore throat Cardiovascular Cardiovascular: Denies chest pain or palpitations Respiratory/Chest Respiratory/Chest: Denies cough or dyspnea Gastrointestinal Gastrointestinal: Denies nausea or vomiting Genitourinary Genitourinary ED: Denies dysuria or hematuria Musculoskeletal Musculoskeletal: Denies back pain or neck pain Integumentary Denies abscess or rash Neurologic Neurologic: Reports headache(s) and weakness Allergic/Immunologic Allergic/Immunologic ED: Denies mouth swelling or urticaria EXAM Physical Exam Const Vital Signs: 12/19/22 13:08 12/19/22 12:52 12/19/22 13:15 Temperature 98.4 F Temperature Source Oral Pulse Rate 75 83 82 Respiratory Rate 16 18 14 Blood Pressure 169/100 H 155/86 H Blood Pressure Mean 123 109 Pulse Ox 98 99 98 Oxygen Delivery Method Room Air Room Air Room Air 12/19/22 12:55 12/19/22 13:25 12/19/22 13:30 Temperature 98.5 F Temperature Source Oral Pulse Rate 72 84 79 Respiratory Rate 16 15 18 Blood Pressure 153/82 H 145/96 H 159/84 H Blood Pressure Mean 105 112 109 Pulse Ox 97 97 97 Oxygen Delivery Method Room Air Room Air Room Air 12/19/22 13:58 12/19/22 14:00 Temperature 98.6 F 98.6 F Temperature Source Oral Pulse Rate 74 72 Respiratory Rate 16 16 Blood Pressure 146/95 H 153/80 H Blood Pressure Mean 112 104 Pulse Ox 94 97 Oxygen Delivery Method Room Air Positive well nourished and well developed General Appearance ED: well developed HEENT Reports moist mucous membranes Neck supple and no JVD Resp normal respiratory effort and clear to auscultation bilaterally Cardio regular rate, regular rhythm and no murmurs GI normal to inspection, nondistended, normoactive bowel sounds and non-tender Palpation: soft Extremity normal to inspection General Extremety ED: Negative for edema or tenderness General Extremity: Negative for edema Neuro oriented x3 and no sensory deficits noted Neuro Narrative: There is weakness of the left lower face. There is some mild drift of the left upper extremity but he was able to hold it against gravity for 10 seconds. There is mild weakness of the left lower extremity. He was able to hold his left leg above the bed against gravity for 5 seconds. There are no sensory deficits noted. [place] Coma Scale: document GCS findings Spontaneous Obeys Commands Oriented 15 Sensorium / Orientation: alert Motor Exam: strength abnormal Psych mental status grossly normal Skin no rashes or lesions noted NIHSS NIHSS Initial: 1a Level of Consciousness: 0 1b LOC Questions (Score 2 if aphasic/stupor): 0 1c LOC Commands (Only score 1st attempt): 0 2 Best Gaze (If aphasic, use reflexive mvmts.): 0 4 Facial Palsy: 2 5 Motor Arm Right (UN = amputation/fusion): 0 5 Motor Arm Left: 1 6 Motor Leg Right: 0 6 Motor Leg Left: 1 8 Sensory (Aphasia/stupor=0 or 1, coma=2): 0 9 Best Language: 0 10 Dysarthria (mute, coma=2, intubated=UN): 0 Total Score: 4 MDM MDM MDM Narrative Medical decision making narrative: Differential diagnosis includes stroke, intracranial hemorrhage, cardiac dysrhythmia, and neuropraxia. CT scan of the brain will be obtained to assess for stroke and intracranial bleeding. CTA of the head and neck will be obtained to assess for vascular occlusion. Portable chest x-ray will be obtained to assess for pneumonia and congestive heart failure. EKG will be obtained to asse ss for cardiac dysrhythmia and cardiac ischemia. CBC will be obtained to assess for anemia and leukocytosis. Patient metabolic profile will be obtained to assess for electrolyte abnormality and renal function. High-sensitivity troponin will be obtained to assess for cardiac ischemia. PT with INR and PTT will be obtained to assess for coagulopathy. Lab Data Attestation: I reviewed the patient's lab results. Lab results narrative: CBC was reviewed and was within normal limits. Basic metabolic profile was reviewed and showed a mild hyponatremia 131 but was otherwise within normal limits. PT with INR and PTT were reviewed and were within normal limits. High- sensitivity troponin was reviewed and was normal at 5. Labs: Laboratory Results - last 24 hr 12/19/22 12/19/22 12/19/22 12:35 12:35 12:35 WBC 8.1 RBC 4.72 Hgb 15.8 Hct 44.7 MCV 94.7 H MCH 33.5 H MCHC 35.3 RDW Std Deviation 42.3 RDW Coeff of La 12.0 Plt Count 261 MPV 8.8 Immature Gran % (Auto) 0.400 Neut % (Auto) 61.1 Lymph % (Auto) 29.2 [place] % (Auto) 7.4 Eos % (Auto) 1.4 Baso % (Auto) 0.5 Absolute Neuts (auto) 4.9 Absolute Lymphs (auto) 2.35 Nucleated RBC % 0 PT 12.7 INR 1.0 APTT 28.0 Sodium 131 L Potassium 4.0 Chloride 97 L Carbon Dioxide 29.0 Anion Gap 5 BUN 9 Creatinine 0.78 Estim Creat Clear Calc 92.88 Est GFR (MDRD) Af Amer 132 Est GFR (MDRD) Non-Af 109 BUN/Creatinine Ratio 11.6 Glucose 117 H Calcium 9.3 Troponin I High Sens 5 Radiography Diagnostic Testing: Clinical Impression(s) from Imaging Studies Brain CT 12/19/22 12:55 IMPRESSION: Mild degree of periventricular decreased attenuation suggestive of microvascular disease. Findings suggestive of ischemic change in the right basal ganglia. N.B. : The above Results were Read Back by Lion Lin MD to Arnold Rosas and understanding confirmed on 12/19/2022 13:10:46 (ET). Electronically Signed: Lion Lin MD at 13:11 EST , ADDENDUM: 12/19/22 1318 IMPRESSION: Mild degree of periventricular decreased attenuation suggestive of microvascular disease. Findings suggestive of ischemic change in the right basal ganglia. N.B. : The above Results were Read Back by Lion Lin MD to Arnold Rosas and understanding confirmed on 12/19/2022 13:10:46 (ET). Electronically Signed: Lion Lin MD at 13:11 EST , Head/Neck CTA 12/19/22 12:55 IMPRESSION: Occlusion of the right vertebral artery at its origin. N.B. : The above Results were Read Back by Lion Lin MD to Arnold Rosas and understanding confirmed on 12/19/2022 13:32:54 (ET). 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 N.B. : The above Results were Read Back by Lion Lin MD to Arnold Rosas and understanding confirmed on 12/19/2022 13:32:54 (ET). Electronically Signed: Lion Lin MD at 13:34 EST , Chest X-Ray 12/19/22 13:45 IMPRESSION: Hyperinflation. Electronically Signed: Lion Lin MD at 14:03 EST , CT scan of the brain was obtained. On my independent interpretation, there is no acute infarct or bleed noted. Radiologist also interpreted the CT scan and noted ischemic changes in the right basal ganglia. There is also mild degree of periventricular attenuation suggestive of microvascular disease. CTA of the head and neck was reviewed independently by myself. There is an occlusion of the right vertebral artery. Radiologist also interpreted the CT angiogram and agrees that there is a occlusion of the right vertebral artery at the origin. Portable 1 view chest x-ray was obtained. On my independent interpretation, lung morrow are clear. There is normal cardiac silhouette. Bony thorax is normal. There is no acute process noted. Radiologist also interpreted the x- ray and agrees. EKG Initial EKG: Attestation: I personally reviewed and interpreted this EKG as follows: Interpretation: Sinus Rhythm (77) and No Acute Injury Pattern Comments: EKG was obtained. On my interpretation, it showed a normal sinus rhythm with a rate of 77. [place] interval, QRS interval, and QTc intervals were all normal. [place] was normal. There are no acute ST or T wave changes. Prior EKG tracings: not available for review Prior: No Prior Treatment and Re-Evaluation Narrative: Patient was advised of his findings. Patient was informed that he is likely having a stroke that most likely began sometime after he fell asleep at 2:30 AM. Patient was advised he is not a candidate for thrombolytics at this time due to the timeframe of his last known well. Patient was evaluated by [facility] neurology, Dr. Moreno, who felt that the patient's symptoms were due to an acute stroke. He was later notified of the results of the CTA. He will have the patient transferred to [facility]. Patient was accepted to the service of Dr. Batista. Patient understood and was agreeable with the plan. All questions were answered. Critical Care Time Critical Care Time: Yes Critical care time (excluding procedures): 30-74 minutes (37), Including time spent:, Discussing w/Patient &/or Family/Communications Professor, Discussing w/Consultants, Arranging Admission or Transfer and Performing Direct Patient Care at Bedside Discharge Plan Triage Chief Complaint: Stroke Alert ED Provider: Arnold Rosas Dx/Rx/DC Orders Clinical Impression: Stroke, Occlusion of right vertebral artery, Hypertension Prescriptions: No Action amlodipine 10 mg Tablet 10 mg PO DAILY ascorbic acid (vitamin C) [Vitamin C] 500 mg Tablet,Chewable 500 mg PO DAILY metoprolol tartrate 50 mg Tablet 50 mg PO BID lisinopril 40 mg Tablet 40 mg PO BID Genvoya [phone] mg Tablet 1 tab PO DAILY Rx Instructions: must administer with a meal/food Primary Care Provider: Hi Monroy Referrals: Hi Monroy DO [Primary Care Provider] - Disposition Disposition: Acute Care Hospital Discharge Location: [facility]
--- NOTE | 2022-12-19 14:58 | NURSING ---
CALLED SQUAD, ETA IS ANOTHER 20 MIN
--- NOTE | 2022-12-19 15:28 | CM.ED ---
FELIX provided patient's support person with directions to [facility] per [facility] web site. Richelle TODD
== END 2022-12-19 15:46 | disposition short-term general hospital (02) ==
PROVIDERS: Emergency Provider Emergency Medicine; PCP Family Medicine; Visit Provider Emergency Medicine
DX: I63.211 Cerebral infarction due to unspecified occlusion or stenosis of right vertebral artery (principal); I10 Essential (primary) hypertension; F17.210 Nicotine dependence, cigarettes, uncomplicated; Z79.899 Other long term (current) drug therapy; Z86.73 Personal history of transient ischemic attack (TIA), and cerebral infarction without residual deficits
CPT/HCPCS: 70450; 70496; 70498; 71045; 80048; 84484; 85025; 85610; 85730; 93005; 99285; Q9967

== ENCOUNTER 2023-04-05 13:00 | Outpatient (RCR) | payer OTHER, SELFPAY ==
--- NOTE | 2022-12-27 12:58 | HP.PTEVAL_ITS ---
Patient's Visit Information ALEXANDRA STRINGER is a 57 year old M referred to Physical Therapy by KERRY TOWNSEND with a diagnosis of CVA. Date of Evaluation: 12/27/22 Physical Therapist: Atul Romero DPT - Visit Plan Frequency: 1x/Week Duration: 1 Week Plan: Pt. does not require PT at this point in time and with be DC to PCP. - Subjective Pt. is here today for his initial evaluation with diagnosis of CVA. Pt. Reports on Dec 19 he went to sleep late at night and woke up and was not able to lift his arm, facial droop and was not able to stand. He was sent to [facility] then ultimately to [facility]. He was released from [facility] on Saturday. Pt. report that he lives by him self, 3 steps to enter home. He reports overall getting along pretty well since being home, but fatigues quickly. 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 Pt. reports his biggest concerns are with his L hand an his speech. Pt. has a dog as well. Pt. reports not returning to work as of yet and is not sure when he plans to do so. Pt. is to follow up with PCP later this week. - Objective POSTURE: Pt. has normal posture, except FH. Pt. is able to improve with VCing. Normal CAMERON and good stability. No AD. PALPATION: Pt. has no issues with palpati on of BLEs. NEURO: Pt. has normal sensation in BLEs. Pt. has normal DTR of BLEs. Pt. is able to rise on heels and toes without issues without balance aide. ROM: Pt. has good ROM throughout BLEs and lumbar spine. MMT: RLE: ankle 5/5 throughout; knee: ext 57#, flexion 43#; hip: flexion 27.8#, abd 24#. LLE: ankle 5/5 throughout; knee: ext 58#, flexion 41#; hip: flexion 24.1#, abd 22.3#. Core strength- fair-. GAIT: Pt. has good gait pattern without use of AD. Pt. reports no pain. He has good stability without LOB. Good B foot clearance noted. BALANCE: FGA 29/30, slight difficulty with heel-toe walking. TU.2sec no AD. - Balance/Special Test Scores Functional Gait Assessment Score: 29 % Disability: 3.3400 CATSIB Score (Max score 120 seconds): 120 Lower Extremity Functional Score: 39 TUG Test Time Seconds: 9.2 6 Minute Walk Test: 1400 feet without AD. mild fatigue noted - Rehabilitation Potential Physical Therapy Diagnosis: Pt. has signs and symptoms consistent with CVA. He initially had some L sided weakness, but that appears to have resolved in his LEs. Pt. did very well with his balance and functional mobility testing. His LE strength was basically symmetrical without issues. At this point in time he does not need PT. Pt. to keep working on walking progression at home and follow up with OT and ST for his L hand control and his speech next week. I did talk to him about modifiable factors in his diet and lifestyle to prevent future occurances. Rehabilitation Potential: Excellent - Anticipated Interventions Patient/Client Instruction: Educate patient on: Condition, Plan of Care, Risk Factors, Benefits of Fitness Program For the Purpose of:: To improve decision making, To facilitate caregiver knowledge, To improve self management, To prevent re-injury, To improve ability to perform tasks related to life management, To improve tolerance to ADL's Thank you for the opportunity to evaluate your patient. For Medicare and Medicare HMO plans, please review the plan of care and approve it. It will need to be FAXED BACK to us at [phone] for Medicare purposes. For Medicare only, by signing this I certify the plan of care. Please let me know if there are questions or concerns regarding this plan of care. Physician Signature: Date:
--- NOTE | 2022-12-27 12:59 | HP.PTDCSUM ---
It has been my pleasure to treat ALEXANDRA STRINGER referred by KERRY TOWNSEND, with the diagnosis of CVA for a total of 1 visit(s). Discharge Date: 12/27/22 Please see the following information for a summary of their discharge status. Plan: Pt. does not require PT at this point in time and with be DC to PCP. Discharge Comments: Pt. was seen for his PT evaluation this date. He is doing very well and will be DC back to physician at this point in time. I want him to work on a progressive walking program and look into diet and lifestyle changes that might help him reduce future risk. Pt. consents. If there are questions or concerns regarding this patient's physical therapy, please feel free to call me at [phone]. Thank you for the referral of this patient. Sincerely, Atul Romero, DPT Balance/Gait/Functional tests - Balance/Special Test Scores Functional Gait Assessment Score: 29 % Disability: 3.3400 CATSIB Score (Max score 120 seconds): 120 Lower Extremity Functional Score: 39 TUG Test Time Seconds: 9.2 Tug Test: <10 sec.=free mobile 6 Minute Walk Test: 1400 feet without AD. mild fatigue noted
--- NOTE | 2023-01-02 14:27 | HP.OTEVAL_ITS ---
Patient's Visit Information ALEXANDRA STRINGER is a 57 year old M, referred to Occupational Therapy by KERRY TOWNSEND, with a diagnosis of CVA. Date of Evaluation: 01/02/23 Occupational Therapist: Ameena Valladares, ROSASR/William, CHT - Subjective Pt. is here today for his initial evaluation with diagnosis of CVA. Pt. Reports on Dec 19 he went to sleep late at night and woke up and was not able to lift his arm, facial droop and was not able to stand. He was sent to [facility] then ultimately to [facility]. He was released from [facility] on Saturday. Pt. report that he lives by him self, 3 steps to enter home. He reports overall getting along pretty well since being home, but fatigues quickly. 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 reports his biggest concerns are with his L hand an his speech. states he as the feeling of fog that he cant get passed. pt would like to get to a comfortable place where he can get to typing, decrease the left neglect. pt states he has a temperament and has broken his phone in frustration. Pt. has a dog as well. Pt. reports not returning to work as of yet and is not sure when he plans to do so. - ADLs Comments: pt driving only short distances. pt doing cleaning/cooking and laundry. pt states all tasks take longer- - ROM Shoulder: right WNL left 150* Elbow: right/left WNL Forearm: right/left WNL - Strength Shoulder: right 17# left 15# Elbow: right biceps 29# triceps 23# left biceps 25# triceps 17# Crop Farmers: right 75# left 50# Lateral Pinch: right 16# left 14# Tripod Pinch: right 10# left 16# Tip-to-Tip Pinch: right 14# left 6# - Sensation Sensation Comments: states this resolved - Nine Hole Peg Right: right 19.45 sec. Left: right 38.82 sec. - Stroke Specific Quality of Life Total SS-QOL Score: 154 - Goals Goal:: pt will demo a increase in left UE strength by 15# or greater to increase pts ind. with ADls adn IADls by d/c. pt will demo a increase in left pinch strength by 4# to increase pts ind. with ADLs by d/c. pt will demo the ability to lift 20 overhead to increase pts ind. with home mtg. by d.c Goal:: pt will demo the ability to type 3 sentences with no more than 3 errors by dc. pt will demo a reduction in 9-hole peg testing by 15 sec. indicating improved FMS by d.c Goal:: pt will demo good ability to scan across paper/ computer screen to decrease typing errors by d/c - Rehabilitation General Assessment: pt demo with a decline in functional motor dexterity, speed and motor coordination to perform ADLs and IADls. pt demo weakness, decline in bilateral hand skills with symptoms of nausea when he attempts. Due to residual weakness and decrease motor skills of left UB pt would benefit from skilled OT services 2-3x week for 8 weeks. Rehabilitation Potential: Good - Anticipated Interventions Strengthening, Ergonomic Education, Fine Motor Coord/Mihir, Neuro Reeducation, Visual/Perceptual Skills, ADL Training, Education re assistive Equipment, Education re Diagnosis, Home Program - Visit Plan Frequency: 2-3x /Week Duration: 2 Months TEXT: Thank you for the opportunity to evaluate your patient. For Medicare and Medicare HMO plans, please review the plan of care and approve it. It will need to be FAXED BACK to us at [phone] for Medicare purposes. Please let me know if there are questions or concerns regarding this plan of care. Physician Signature: Date:_
--- NOTE | 2023-01-03 09:29 | HP.SP.EV_ITS ---
Visit History - Visit Info Date of Eval: 01/02/23 Visit: 1 Remote Sensing Advisor: CAPRICE - History Attending Doctor: KERRY TOWNSEND Referring Doctor: KERRY TOWNSEND Reason for Referral: STROKE/RX W/ PT Previous speech therapy: No Other Relevant Medical History/Diagnoses/Surgery: ALEXANDRA STRINGER is a 57 year old male who presents to [facility] following a stroke dx. Pt presenting with concerns for 'speech difficulty.' Pt describing his speech as sounding slurry to himself. Pt reports some drooling out of the left side. Pt manages a local hotel in town. Pt's affect appears solemn and somber which could be contributing to his low vocal amplitude. Following further probing into Pt's 'speech difficulty' suspect Pt is actually experiencing mild aphasia, not dysarthria. Pt did present with a semantic paraphasia in session today via saying fur for shedding. 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 Pt presenting with concerns for 'speech difficulty.' Pt describing his speech as sounding slurry to himself. Pt reports some drooling out of the left side. Pt manages a local hotel in town. Pt's affect appears solemn and somber which could be contributing to his low vocal amplitude. Following further probing into Pt's 'speech difficulty' suspect Pt is actually experiencing mild aphasia, not dysarthria. Pt did present with a semantic paraphasia in session today via saying fur for shedding. Smoking Status: Current every day smoker Hx Smoking: Yes - 1pk a day Hx Tobacco Use: Yes - Pain Is pain an issue with your current prescribed condition?: No Patient Allergies - Allergies Allergies erythromycin base Allergy (Verified 12/31/22 13:53) Hives Sulfa (Sulfonamide Antibiotics) Allergy (Verified 12/31/22 13:53) Other CLQT - CLQT CLQT Administered: Yes CLQT: Cognitive Linguistic Quick Test (CLQT) is a criterion - referenced assessment designed for adults between the ages of 18 and 89 with known or suspected neurological dysfuntions. The CLQT is to assess strength and weaknesses in five cognitive domains. Severity ratings are within normal limits, mild, moderate, severe deficits. The subtests are as follows: Date: 01/02/23 - Attention Attention: Mild - Memory Memory: Moderate - Executive Functions Executive Functions: WNL - Language Language: Mild - Visuospatial Skills Visuospatial Skills: WNL - Composite Severity Rating Composite Severity Rating: Mild - Clock Drawing Severity Rating Clock Drawing Severity Rating: WNL - CLQT Comments Item Analysis Cognitive Domain Scores. ? Personal Facts (memory and language ability): 06/18. ? Symbol Cancellation (nonlinguistic task of visual attention and perception, integrity of the upper/lower quadrants of the left/right visual morrow): 10/22. ? Confrontation Naming (aphasia, perseveration, verbosity): 08/20. ? Clock Drawing (screening of all cognitive domains): 10/23. ? Story Retelling (memory and comprehension, arousal, attention, storage capacity, narrative skills): 01/18 DOES NOT MEET CRITERION CUT OFF. ? Symbol Trails (nonlinguistic task to assess planning, self-monitoring, working memory, and visual attention, and impulsivity): 06/20 DOES NOT MEET CRITERION CUT OFF. ? Generative Naming (word retrieval skills, perseveration): 03/19 (Pt performing well with naming items within a category, however when restricted to first letter 'm', Pt only naming 1 item. ? Design Memory (nonlinguistic task to assess visual discrimination & analysis, attention, and visual memory, impulsivity, perseveration): 04/16. ? Mazes (planning, mental flexibility, self-monitoring, visual discrimination, and impulsivity): 02/16 DOES NOT MEET CRITERION CUT OFF. ? Design Generation (nonlinguistic task of creativity and mental flexibility): 07/24. Severity Rating. Domain Scores: Attention = 175/215 (MILD); Memory = 139/185 (MODERATE); Executive Functioning = 26/40 (low average WNL); Language = 26/37 (MILD); Visuospatial Skills = 85/105 (low average WNL); Clock Drawing = 12/13 (WNL). Plan - Plan Plan: Will recommend Pt for weekly outpatient speech therapy to address mild cognitive impairment and mild aphasia characterized by deficits in immediate and short-term memory, word retrieval, and attention. Pt would benefit from training in compensatory strategies for recall and word retrieval, as well as cognitive training to improve cognitive functioning. Without skilled ST services, the Pt is at risk for decreased independence completing daily living tasks and return to work. - Recommendations Treatment Warranted: Yes Treatment Warranted: Cognition, Voice Comment: Would also consider Pt for an language and literature division chair referral d/t difficulty with vision. - Progress Prognosis: Excellent - Frequency Frequency: 1x/Week Duration: 3 Months - Patient/Family Goal Patient/Family Goal: Pt wishing to return to work - Goals that are Established Determination:: Goals will be added/modified as deemed necessary and appropriate. Therapy will be discontinued when results of re-evaluation indicate therapy is no longer needed or lack of progress has been documented. - Goal #1-5 Goal #1: Colton will complete basic to mod complex sustained, alternating, divided attention tasks with 80% acc independently across 3 measured opportunities. Goal #2: Colton will complete basic to mod complex immediate, short-term, and working memory tasks with 80% acc independently across 3 measured opportunities. Goal #3: Colton will modify environment at home via implementing memory compensatory strategies within 3 weeks' time of their initial evaluation. Goal #4: Colton will demonstrate use of word finding strategies to complete complex convergent and divergent naming tasks with 90% acc independently across 3 measured opportunities to improve word retrieval. Goal #5: Colton will independently utilize compensatory articulation techniques (increased vocal intensity, reduced rate of speech, over-articulation) to facilitate improved speech intelligibility during expressive communication attempts with both familiar and unfamiliar listeners within the home environment and community with less than 2 cues during session, across 3 measured sessions. Education - Patient has Indicated that the Following Identified Educational Needs: None The Patient has indicated that they have no educational or learning abilities that may effect their care.: Yes - Patient Instruction Patient Education: Diagnosis, Treatment Plan, Goals, Home Exercise Program Person Taught: Patient Teaching Method: Discussion, Demonstration, Handout Response to teaching: Return demonstration, Verbalize understanding, Reinforcement needed
--- NOTE | 2023-03-07 14:30 | HP.OTDCSUM_ITS ---
It has been my pleasure to treat ALEXANDRA STRINGER under orders from KERRY TOWNSEND, for the diagnosis of CVA for a total of 11 visit(s). Please see the following information for a summary of their discharge status. % Improvement: 90 Objective/Function: Freight Representative: right 80# left 65# increase from 50#. Lateral Pinch: right 22# left 18# increase from 14#. Tripod Pinch: right 18# left 17# increased from 16#. Tip-to-Tip Pinch: right 13# left 10#increase from 6#. 9HPT- Right: right 18:03 sec. 9HPT- Left: right 25.73 sec. improved from 38.82. pt reports he mowed the yard yesterday- pt states he walks daily. pt states he is IND with ADLs and IADLs at TORO level. pt states prior to his heart procedure he was working out with his free wts. Patient Goals: Regain Strength, Improve Fine Motor Skills, Use Hand/Wrist/Arm Normally Again, Be More Independent in ADLS, Resume Former Household Responsibilities (Cooking,Cleaning,Yard, etc.) Goal:: pt will demo a increase in left UE strength by 15# or greater to increase pts ind. with ADls adn IADls by d/c ( goal met). pt will demo a increase in left pinch strength by 4# to increase pts ind. with ADLs by d/c ( goal met). pt will demo the ability to lift 20 overhead to increase pts ind. with home mtg. by d.c Goal:: pt will demo the ability to type 3 sentences with no more than 3 errors by dc. pt will demo a reduction in 9-hole peg testing by 15 sec. indicating improved FMS by d.c ( goal met) Goal:: pt will demo good ability to scan across paper/ computer screen to decrease typing errors by d/c progressing Plan: D/C Discharge Comments: pt was seen for 11 OT sessions following a CVA. pt has improved in his overall strength and endurance to perform ADLs and IADLs at PLOF. Pt is continues to make gains with his FMS. pt has met OT goals and at this time pt is d/c with HEP to continue - pt agrees with D/C. pt voiced concerns with his slurred speech and cognitive skills. Pt will continue with his speech therapy for cognitive reasoning, thought processing and speech. If there are questions or concerns regarding this patient's occupational therapy, please fell free to call me at [phone]. Thank you for the re ferral of this patient. Sincerely, Ameena Valladares, OTR/L, CHT
--- NOTE | 2023-04-29 16:59 | HP.SP.DC ---
ST Discharge Summary - Discharged: Discharge: DOMINGO STRINGER is a 57 year old male who presented to [facility] on 01/02/2023 following a CVA and aphasia dx. He participated in 8 additional sessions targeting word finding difficulties, attention, problem solving, memory and executive functioning tasks. Direct education and practice were provided with over 10 word finding strategies with Colton using independently 80% of the time. He benefited from encouragement that during moments of fatigue, word finding would be more challenging. Colton's attention skills improved over the course of therapy scoring between 76-94% acc independently requiring only supervision to increase to 100%. He completes memory story retell tasks with 89% acc for simple, basic stories and 6% on complex stories however benefits from hearing the story twice and using external memory aid of keeping notes to quickly improve to 80% acc. Colton has returned to work and reports that it is going well, except for his quick temper. Recommended he speak with PCP about being quick to anger following his CVA. Pt reporting some difficulty managing anger at baseline, but worse now following CVA. Colton is appropriate to d/c from speech therapy at this time. Discussed him returning should he notice a regression in skills. Thank you for allowing me to participate in the care of your patient.
== END 2023-04-05 19:00 | disposition home or self-care (01) ==
LOC: SP 13:00
PROVIDERS: PCP Family Medicine
DX: I69.320 Aphasia following cerebral infarction (principal); I69.318 Other symptoms and signs involving cognitive functions following cerebral infarction
CPT/HCPCS: 92507; 97110; 97129; 97130; 97161; 97166; 97530

== ENCOUNTER → 2023-04-23 | Outpatient (CLI) | payer OTHER, SELFPAY ==
[2023-04-23 16:13] LABS: PSA,Total - Annual Screen 2.32 ng/mL (0.00-4.00); Sodium Level 132 mmol/L (136-145)
== END | disposition home or self-care (01) ==
LOC: BFHLAB 13:53
PROVIDERS: PCP Family Medicine; Referring Provider Family Medicine; Visit Provider Family Medicine
DX: Z12.5 Encounter for screening for malignant neoplasm of prostate (principal); E87.1 Hypo-osmolality and hyponatremia
CPT/HCPCS: 36415; 84153; 84295; G0103

== ENCOUNTER → 2023-05-30 | Outpatient (CLI) | payer OTHER, SELFPAY ==
[2023-05-30 12:37] LABS: Erythrocyte Sedimentation Rate 10 mm/hr (0-20)
[2023-05-30 12:41] LABS: Absolute Lymphocyte Count 1.71 X10^3/uL (0.83-4.51); Absolute Neutrophil Count 3.9 X10^3/uL (2.0-7.7); Basophil# 0.04 X10^3/uL; Basophil% 0.6 % (0-1); Eosinophil# 0.13 X10^3/uL; Hemoglobin 15.3 g/dL (13.0-16.5); Lymphocyte # 1.71 X10^3/ul (0.83-4.51); Lymphocyte % 26.8 % (19-41); Mean Platelet Vol. 8.8 fl (6.2-12.0); Monocyte# 0.55 X10^3/uL; Monocyte% 8.6 % (0-10); NRBC Flagged by Analyzer 0 % (0-5); Neutrophil # 3.93 X10^3/uL (2.7-7.7); Neutrophil % 61.7 % (47-70); Platelet Count 257 K/mm3 (150-450); RBC Distribution Width CV 12.7 % (11.6-14.6); RBC Distribution Width SD 45.2 fl (35.1-43.9); Red Blood Count 4.64 M/mm3 (4.6-6.2); White Blood Count 6.4 K/mm3 (4.4-11.0)
[2023-05-30 13:25] LABS: AST(SGOT) 22 U/L (15-37); Alanine Aminotransfer ALT/SGPT 22 U/L (16-61); Albumin, Serum 4.2 g/dL (3.2-5.0); Alkaline Phosphatase 66 U/L (45-117); Anion Gap 6 (5-15); BUN 7 mg/dL (7-18); BUN/Creat Ratio 9.9 RATIO (10-20); Calcium,Total 9.1 mg/dL (8.5-10.1); Chloride 102 mmol/L (98-107); Cholesterol 204 mg/dL (200); Creatinine, Serum 0.71 mg/dL (0.70-1.30); EST Glomerular Filtration Rate 121 mL/min (>60); Est Glom Filt Rate - Afr Amer 147 mL/min (>60); Globulin 4.3 g/dL (2.2-4.2); Glucose 99 mg/dL (74-106); High Density Lipoprotein 72 mg/dL; Protein, Total 8.5 g/dL (6.4-8.2); Sodium Level 135 mmol/L (136-145); Triglycerides 57 mg/dL; Very Low Density Lipoprotein 11 mg/dL (5-40)
--- NOTE | 2023-05-30 14:28 | CT_ITS ---
STUDY: LOW DOSE CT LUNG CANCER SCREENING REASON FOR EXAM: Male, 57 years old. SCREEN RADIATION DOSAGE (If Supplied By Facility): CTDIvol = ( 2.01 ) mGy, DLP = ( 77.26 ) mGycm TECHNIQUE: No contrast was administered. Low dose technique was utilized (average mAS-38 and kVp 120). 1.25 mm axial source images with a slice interval of 1.25-mm were reconstructed in lung windows. 2.5 mm axial source images with a slice interval of 2.5-mm were reconstructed in lung windows. 5.0 mm axial source images with a slice interval of 5.0-mm were reconstructed in soft tissue windows. COMPARISON: 01/17/2022 Emphysema: Mild emphysema. No noncalcified nodule or mass. Endobronchial lesion: None Aorta: No aortic aneurysm. CORONARY ARTERIES: Coronary artery calcification is seen. Heart: Cardiomegaly. Suspect heart valve prosthesis. Pulmonary artery: Normal Mediastinal nodes: Normal Other chest and abdominal findings: None CT/Low Dose CT Lung Screening IMPRESSION: Lung-RADS category 1 - Continue annual screening with LDCT in 12 months. IMPORTANT NOTES FOR USE: ACR Lung-RADS Version 1.1 Assessment Categories Release Date: 2018 Category: Coded 0-4 bases on nodule(s) with highest degree of suspicion. Negative screen is defined as categories 1 and 2; a positive screen is defined as categories 3 and 4. Category 3 and 4A nodules that are unchanged on interval CT should be coded as category 2, and individuals returned to screening in 12 months. Category 4X: Category 3 or 4 nodules with additional imaging findings that increase the suspicion of lung cancer, such as spiculation, GGN that doubles in size in 1 year, enlarged lymph notes, etc. Category Modifiers: S (significant finding unrelated to lung cancer) Electronically Signed: Soren Golden MD at 22:06 EDT Reading Location ID and State: [facility] / [place] Tel , Service support ,
[2023-06-03 13:13] LABS: ANTINUCLEAR ANTIBODIES DIRECT Negative (Negative); HIV-1 RNA by PCR, Quant. < 20 copies/mL (.)
[2023-06-07 12:09] LABS: Anti-Cardiolipin Ab, IgA, Qn < 9 APL U/mL (0-11); Anti-Cardiolipin Ab, IgG, Qn < 9 GPL U/mL (0-14); Anti-Cardiolipin Ab, IgM, Qn < 9 MPL U/mL (0-12); Anti-Thrombin 3 AG, Immunol 84 % (72-124); Antithrombin 3 Function 114 % (75-135); Complement C3 109 mg/dL (82-167); Complement CH50 > 60 U/mL (>41); Dilute Prothrombin Time (dPT) 43.9 sec (0.0-47.6); Dilute Russell Viper Venom 40.3 sec (0.0-47.0); Interpretation Comment: (.); PTT-LA 32.2 sec (0.0-43.5); Protein C Antigen 66 % (60-150); Protein C, Functional 91 % (73-180); Protein S, Free 88 % (61-136); Protein S, Funtional 77 % (63-140); Protein S, Total 102 % (60-150); Thrombin Time 17.1 sec (0.0-23.0); dPT Confirm Ratio 1.26 Ratio (0.00-1.34)
== END | disposition home or self-care (01) ==
LOC: CT 10:28
PROVIDERS: Psychiatry & Neurology Neurology; PCP Family Medicine; Referring Provider Family Medicine; Visit Provider Family Medicine
DX: B20 Human immunodeficiency virus [HIV] disease (principal); Z12.2 Encounter for screening for malignant neoplasm of respiratory organs; Z86.73 Personal history of transient ischemic attack (TIA), and cerebral infarction without residual deficits
CPT/HCPCS: 71271; 80053; 80061; 81240; 81241; 85025; 85300; 85301; 85302; 85303; 85305; 85306; 85652; 86038; 86147; 86160; 86162; 86225; 86235; 87536

== ENCOUNTER → 2023-06-10 | Outpatient (CLI) | payer OTHER, SELFPAY ==
--- NOTE | 2023-06-10 13:52 | ART_ITS ---
Reason For Study: Non Palpable Left Pedal Pulses Procedure A bilateral lower extremity continuous wave Doppler with analog waveform analysis and ankle brachial indexes. Left Segmental Pressures Left brachial= 135mmHg. Left posterior tibial artery = 82mmHg. Left dorsalis pedis artery = 86mmHg. Left digit = 68 mmHg. Right Segmental Pressures Right brachial= 124mmHg. Right posterior tibial artery = 137mmHg. Right dorsalis pedis artery = 138mmHg. Right digit = 104 mmHg. Indices The right ankle brachial index by the posterior tibial artery is 1.01. The right ankle brachial index by the dorsalis pedis is 1.02. The right digital-brachial index is 0.77. The left ankle brachial index by the posterior tibial artery is 0.61. The left ankle brachial index by the dorsalis pedis is 0.64. The left digital-brachial index is 0.50. VL/Ankle Brachial Index Interpretation Summary Right GARIMA 1.02, normal. TBI and Doppler/PVR waveforms of the right lankle rohit l at rest. Left GARIMA 0.64, moderate arterial insufficiency. Doppler/PVR waveforms of the le ft ankle moderately diminished at rest. Ordering Physician: Manuel Erwin Referring Physician: Hi Monroy Performed By: Josselyn Harris RDCS/RVT
== END | disposition home or self-care (01) ==
LOC: CVS 13:51
PROVIDERS: PCP Family Medicine; Referring Provider Psychiatry & Neurology Neurology; Visit Provider Psychiatry & Neurology Neurology
DX: R09.89 Other specified symptoms and signs involving the circulatory and respiratory systems (principal)
CPT/HCPCS: 93922

== ENCOUNTER → 2023-12-02 | Outpatient (CLI) | payer OTHER, SELFPAY ==
[2023-12-02 16:05] LABS: ALB/GLOB Ratio 1.1 RATIO (0.9-2.4); AST(SGOT) 31 U/L (15-37); Alanine Aminotransfer ALT/SGPT 35 U/L (16-61); Albumin, Serum 3.9 g/dL (3.2-5.0); Alkaline Phosphatase 67 U/L (45-117); Anion Gap 5 (5-15); BUN 10 mg/dL (7-18); BUN/Creat Ratio 14.7 RATIO (10-20); Calcium,Total 8.7 mg/dL (8.5-10.1); Chloride 100 mmol/L (98-107); Cholesterol 142 mg/dL (200); Creatinine, Serum 0.68 mg/dL (0.70-1.30); EST Glomerular Filtration Rate 126 mL/min (>60); Est Glom Filt Rate - Afr Amer 153 mL/min (>60); Globulin 3.5 g/dL (2.2-4.2); Glucose 88 mg/dL (74-106); High Density Lipoprotein 64 mg/dL; Potassium 3.7 mmol/L (3.5-5.1); Protein, Total 7.4 g/dL (6.4-8.2); Sodium Level 133 mmol/L (136-145); Triglycerides 69 mg/dL; Very Low Density Lipoprotein 14 mg/dL (5-40)
[2023-12-02 16:21] LABS: Basophil# 0.04 X10^3/uL; Basophil% 0.6 % (0-1); Eosinophil# 0.18 X10^3/uL; Eosinophils% 2.6 % (0-5); Hematocrit 41.8 % (40-54); Hemoglobin 13.9 g/dL (13.0-16.5); Lymphocyte % 31.2 % (19-41); Mean Corp Hgb Conc 33.3 g/dL (32-36); Mean Corpuscular Hgb 32.6 pg (27.0-32.0); Mean Corpuscular Volume 98.1 fL (80-94); Mean Platelet Vol. 8.7 fl (6.2-12.0); Monocyte# 0.62 X10^3/uL; Monocyte% 8.8 % (0-10); NRBC Flagged by Analyzer 0 % (0-5); Neutrophil # 3.99 X10^3/uL (2.7-7.7); Neutrophil % 56.5 % (47-70); Platelet Count 274 K/mm3 (150-450); RBC Distribution Width CV 13.4 % (11.6-14.6); Red Blood Count 4.26 M/mm3 (4.6-6.2); White Blood Count 7.1 K/mm3 (4.4-11.0)
[2023-12-04 17:07] LABS: Absolute CD4 Helper 750 /uL (359-1519); Basophils (Absolute) 0.1 x10E3/uL (0.0-0.2); Eosinophils 2 % (Not Estab.); Eosinophils (Absolute) 0.1 x10E3/uL (0.0-0.4); Hematocrit 42.5 % (37.5-51.0); Hemoglobin 14.4 g/dL (13.0-17.7); Immature Granulocytes 0 % (Not Estab.); Immature Granulocytes Absolute 0 x10E3/uL (0.0-0.1); Lymphs 32 % (Not Estab.); MCH 33.1 pg (26.6-33.0); MCHC 33.9 g/dL (31.5-35.7); MCV 98 fL (79-97); Monocytes 9 % (Not Estab.); Monocytes (Absolute) 0.5 x10E3/uL (0.1-0.9); Neutrophils 56 % (Not Estab.); Neutrophils (Absolute) 3.5 x10E3/uL (1.4-7.0); Percent % CD4 Pos. Lymph. 37.5 % (30.8-58.5); Percent % CD8 Pos. Lymph. 47.1 % (12.0-35.5); Platelets 290 x10E3/uL (150-450); RBC Count 4.35 x10E6/uL (4.14-5.80); RDW 13.2 % (11.6-15.4); WBC Count 6.3 x10E3/uL (3.4-10.8)
[2023-12-05 07:08] LABS: HIV-1 RNA by PCR, Quant. < 20 copies/mL (.)
== END | disposition home or self-care (01) ==
PROVIDERS: Psychiatry & Neurology Neurology; PCP Family Medicine; Referring Provider Internal Medicine Infectious Disease; Visit Provider Internal Medicine Infectious Disease
DX: B20 Human immunodeficiency virus [HIV] disease (principal); E78.5 Hyperlipidemia, unspecified
CPT/HCPCS: 36415; 80053; 80061; 82248; 85025; 86360; 87536

== ENCOUNTER → 2024-08-04 | Outpatient (CLI) | payer OTHER, SELFPAY ==
[2024-08-04 15:20] LABS: Absolute Lymphocyte Count 1.72 X10^3/uL (0.83-4.51); Absolute Neutrophil Count 3.6 X10^3/uL (2.0-7.7); Basophil# 0.03 X10^3/uL; Basophil% 0.5 % (0-1); Eosinophil# 0.16 X10^3/uL; Eosinophils% 2.6 % (0-5); Hematocrit 39.2 % (40-54); Hemoglobin 13.1 g/dL (13.0-16.5); Lymphocyte # 1.72 X10^3/ul (0.83-4.51); Lymphocyte % 28.4 % (19-41); Mean Corp Hgb Conc 33.4 g/dL (32-36); Mean Corpuscular Hgb 32.6 pg (27.0-32.0); Mean Corpuscular Volume 97.5 fL (80-94); Mean Platelet Vol. 8.6 fl (6.2-12.0); Monocyte# 0.58 X10^3/uL; Monocyte% 9.6 % (0-10); NRBC Flagged by Analyzer 0 % (0-5); Neutrophil # 3.55 X10^3/uL (2.7-7.7); Neutrophil % 58.6 % (47-70); Platelet Count 288 K/mm3 (150-450); RBC Distribution Width CV 13.1 % (11.6-14.6); RBC Distribution Width SD 47.5 fl (35.1-43.9); Red Blood Count 4.02 M/mm3 (4.6-6.2); White Blood Count 6.1 K/mm3 (4.4-11.0)
[2024-08-04 15:58] LABS: ALB/GLOB Ratio 1.1 RATIO (0.9-2.4); AST(SGOT) 27 U/L (15-37); Alanine Aminotransfer ALT/SGPT 29 U/L (16-61); Alkaline Phosphatase 50 U/L (45-117); Anion Gap 6 (5-15); BUN 7 mg/dL (7-18); BUN/Creat Ratio 9.2 RATIO (10-20); Calcium,Total 9.1 mg/dL (8.5-10.1); Chloride 96 mmol/L (98-107); Cholesterol 167 mg/dL (200); Creatinine, Serum 0.76 mg/dL (0.70-1.30); EST Glomerular Filtration Rate 111 mL/min (>60); Est Glom Filt Rate - Afr Amer 134 mL/min (>60); Globulin 3.6 g/dL (2.2-4.2); Glucose 95 mg/dL (74-106); High Density Lipoprotein 84 mg/dL; Potassium 3.6 mmol/L (3.5-5.1); Protein, Total 7.6 g/dL (6.4-8.2); Sodium Level 130 mmol/L (136-145); Triglycerides 52 mg/dL; Very Low Density Lipoprotein 10 mg/dL (5-40)
[2024-08-04 20:01] LABS: HIV - WCH Preliminary Reactive (Nonreactive)
[2024-08-06 16:11] LABS: Absolute CD4 Helper 622 /uL (359-1519); Basophils (Absolute) 0 x10E3/uL (0.0-0.2); Eosinophils 2 % (Not Estab.); Eosinophils (Absolute) 0.1 x10E3/uL (0.0-0.4); Hematocrit 42.2 % (37.5-51.0); Hemoglobin 13.5 g/dL (13.0-17.7); Immature Granulocytes 0 % (Not Estab.); Immature Granulocytes Absolute 0 x10E3/uL (0.0-0.1); Lymphs 28 % (Not Estab.); Lymphs (Absolute) 1.6 x10E3/uL (0.7-3.1); MCH 33.2 pg (26.6-33.0); MCV 104 fL (79-97); Monocytes 9 % (Not Estab.); Monocytes (Absolute) 0.5 x10E3/uL (0.1-0.9); Neutrophils 60 % (Not Estab.); Neutrophils (Absolute) 3.5 x10E3/uL (1.4-7.0); Percent % CD4 Pos. Lymph. 38.9 % (30.8-58.5); Platelets 277 x10E3/uL (150-450); RBC Count 4.07 x10E6/uL (4.14-5.80); RDW 13.1 % (11.6-15.4); WBC Count 5.8 x10E3/uL (3.4-10.8)
[2024-08-10 16:09] LABS: HIV-1 RNA by PCR, Quant. < 20 copies/mL (.)
== END | disposition home or self-care (01) ==
LOC: MTLAB 11:01
PROVIDERS: PCP Family Medicine; Referring Provider Internal Medicine Infectious Disease; Visit Provider Internal Medicine Infectious Disease
DX: B20 Human immunodeficiency virus [HIV] disease (principal)
CPT/HCPCS: 36415; 80053; 80061; 85025; 86361; 86703; 87536

== ENCOUNTER → 2025-02-01 | Outpatient (CLI) | payer OTHER, SELFPAY ==
[2025-02-01 12:42] LABS: Absolute Lymphocyte Count 1.77 X10^3/uL (0.83-4.51); Absolute Neutrophil Count 2.9 X10^3/uL (2.0-7.7); Basophil# 0.05 X10^3/uL; Basophil% 0.9 % (0-1); Eosinophil# 0.22 X10^3/uL; Hematocrit 39.2 % (40-54); Hemoglobin 13.5 g/dL (13.0-16.5); Lymphocyte # 1.77 X10^3/ul (0.83-4.51); Lymphocyte % 32.2 % (19-41); Mean Corp Hgb Conc 34.4 g/dL (32-36); Mean Corpuscular Hgb 33.3 pg (27.0-32.0); Mean Corpuscular Volume 96.8 fL (80-94); Mean Platelet Vol. 8.9 fl (6.2-12.0); Monocyte# 0.58 X10^3/uL; Monocyte% 10.6 % (0-10); NRBC Flagged by Analyzer 0 % (0-5); Neutrophil # 2.85 X10^3/uL (2.7-7.7); Neutrophil % 51.9 % (47-70); Platelet Count 266 K/mm3 (150-450); RBC Distribution Width CV 12.4 % (11.6-14.6); RBC Distribution Width SD 44.7 fl (35.1-43.9); Red Blood Count 4.05 M/mm3 (4.6-6.2); White Blood Count 5.5 K/mm3 (4.4-11.0)
[2025-02-01 14:46] LABS: ALB/GLOB Ratio 1.6 RATIO (0.9-2.4); AST(SGOT) 30 U/L (<=37); Alanine Aminotransfer ALT/SGPT 24 U/L (<=46); Albumin, Serum 4.5 g/dL (3.4-4.8); Alkaline Phosphatase 54 U/L (40-129); Anion Gap 12 (5-15); BUN 10 mg/dL (4-19); BUN/Creat Ratio 14.6 RATIO (10-20); Calcium,Total 9.2 mg/dL (7.6-11.0); Carbon Dioxide 24.8 mmol/L (21.0-32.0); Chloride 98 mmol/L (98-108); Creatinine, Serum 0.71 mg/dL (0.70-1.20); EST Glomerular Filtration Rate 105 (>60); Globulin 2.7 g/dL (2.2-4.2); Glucose 88 mg/dL (70-99); Protein, Total 7.2 g/dL (5.9-8.4); Sodium Level 134 mmol/L (133-145); Total Bilirubin 0.39 mg/dL (0.00-1.30)
[2025-02-02 15:08] LABS: Absolute CD4 Helper 725 /uL (359-1519); Basophils (Absolute) 0 x10E3/uL (0.0-0.2); CD4/CD8 Ratio 0.98 (0.92-3.72); Eosinophils 4 % (Not Estab.); Eosinophils (Absolute) 0.2 x10E3/uL (0.0-0.4); Hemoglobin 13.6 g/dL (13.0-17.7); Immature Granulocytes 0 % (Not Estab.); Immature Granulocytes Absolute 0 x10E3/uL (0.0-0.1); Lymphs 34 % (Not Estab.); Lymphs (Absolute) 1.8 x10E3/uL (0.7-3.1); MCH 33.4 pg (26.6-33.0); MCV 98 fL (79-97); Monocytes 10 % (Not Estab.); Monocytes (Absolute) 0.6 x10E3/uL (0.1-0.9); Neutrophils 51 % (Not Estab.); Neutrophils (Absolute) 2.8 x10E3/uL (1.4-7.0); Percent % CD4 Pos. Lymph. 40.3 % (30.8-58.5); Percent % CD8 Pos. Lymph. 41.2 % (12.0-35.5); Platelets 245 x10E3/uL (150-450); RBC Count 4.07 x10E6/uL (4.14-5.80); RDW 12.6 % (11.6-15.4); WBC Count 5.4 x10E3/uL (3.4-10.8)
== END | disposition home or self-care (01) ==
LOC: MTLAB 10:15
PROVIDERS: PCP Family Medicine; Referring Provider Internal Medicine Infectious Disease; Visit Provider Internal Medicine Infectious Disease
DX: B20 Human immunodeficiency virus [HIV] disease (principal)
CPT/HCPCS: 36415; 80053; 85025; 86360; 87536

== ENCOUNTER → 2025-03-11 | Outpatient (CLI) | payer OTHER, SELFPAY ==
[2025-03-11 14:19] LABS: Cholesterol 156 mg/dL (<=200); High Density Lipoprotein 62 mg/dL; Low Density Lipoprotein Calc. 81 mg/dL; Triglycerides 65 mg/dL; Very Low Density Lipoprotein 13 mg/dL (5-40); cholesterol:hdl ratio screen 2.52
[2025-03-11 14:20] LABS: AST(SGOT) 40 U/L (<=37); Alanine Aminotransfer ALT/SGPT 22 U/L (<=46); Albumin, Serum 4.3 g/dL (3.4-4.8); Alkaline Phosphatase 53 U/L (40-129); Bilirubin, Direct 0.09 mg/dL (0.00-0.30); Globulin 3.1 g/dL (2.2-4.2); Protein, Total 7.4 g/dL (5.9-8.4); Total Bilirubin 0.52 mg/dL (0.00-1.30)
== END | disposition home or self-care (01) ==
LOC: LAB 11:59
PROVIDERS: PCP Family Medicine; Referring Provider Psychiatry & Neurology Neurology; Visit Provider Psychiatry & Neurology Neurology
DX: E78.5 Hyperlipidemia, unspecified (principal)
CPT/HCPCS: 36415; 80061; 80076

== ENCOUNTER → 2025-08-17 | Outpatient (CLI) | payer OTHER, SELFPAY ==
[2025-08-17 17:47] LABS: Hematocrit 35.1 % (40-54); Hemoglobin 12.2 g/dL (13.0-16.5); Immature Granulocytes Count 0.000 X10^3/uL (0.0-0.0); Mean Corp Hgb Conc 34.8 g/dL (32-36); Mean Corpuscular Volume 94.4 fL (80-94); Mean Platelet Vol. 8.7 fl (6.2-12.0); NRBC Flagged by Analyzer 0 % (0-5); Platelet Count 233 K/mm3 (150-450); RBC Distribution Width CV 12.8 % (11.6-14.6); RBC Distribution Width SD 44.2 fl (35.1-43.9); Red Blood Count 3.72 M/mm3 (4.6-6.2); White Blood Count 5.5 K/mm3 (4.4-11.0)
[2025-08-17 18:22] LABS: AST(SGOT) 28 U/L (<=37); Alanine Aminotransfer ALT/SGPT 24 U/L (<=46); Albumin, Serum 4.3 g/dL (3.4-4.8); Alkaline Phosphatase 52 U/L (40-129); Anion Gap 11 (5-15); BUN 10 mg/dL (4-19); BUN/Creat Ratio 13.1 RATIO (10-20); Calcium,Total 9.0 mg/dL (7.6-11.0); Carbon Dioxide 24.7 mmol/L (21.0-32.0); Chloride 96 mmol/L (98-108); Globulin 2.5 g/dL (2.2-4.2); Glucose 68 mg/dL (70-99); Potassium 4.4 mmol/L (3.3-5.1)
[2025-08-19 17:08] LABS: CD4/CD8 Ratio 0.98 (0.92-3.72); Hematocrit 36.7 % (37.5-51.0); Hemoglobin 12.4 g/dL (13.0-17.7); MCH 33.3 pg (26.6-33.0); MCHC 33.8 g/dL (31.5-35.7); MCV 99 fL (79-97); Percent % CD4 Pos. Lymph. 42.5 % (30.8-58.5); Percent % CD8 Pos. Lymph. 43.2 % (12.0-35.5); RDW 12.8 % (11.6-15.4)
[2025-08-20 12:08] LABS: HIV-1 RNA by PCR, Quant. < 20 copies/mL (.)
== END | disposition home or self-care (01) ==
LOC: MTLAB 14:24
PROVIDERS: PCP Family Medicine; Referring Provider Internal Medicine Infectious Disease; Visit Provider Internal Medicine Infectious Disease
DX: B20 Human immunodeficiency virus [HIV] disease (principal)
CPT/HCPCS: 36415; 80053; 85025; 86360; 87536